=== PATIENT | female | born 1930 | race Caucasian/White ===

== ENCOUNTER 2017-11-01 12:22 | Observation (INO) ==
[2017-11-01] MEDS ORDERED: 0.9 % Sodium Chloride 500 ML IVC ONE (12:43)
[2017-11-01 13:15] LABS: Red Cell Distribution Width 16.8 % (11.5-14.5)
[2017-11-01 13:16] LABS: Hematocrit 37.6 % (35.3-44.9); Mean Corpuscular HGB Conc 31.9 g/dL (31.6-35.5); Mean Corpuscular Hemoglobin 25.2 pg (28.0-33.3); Mean Platelet Volume 12.3 fL (9.4-12.4); Red Blood Count 4.76 M/mcL (3.82-4.97)
[2017-11-01 13:19] LABS: Platelet Count 36 K/mcL (140-400)
[2017-11-01 13:19] LABS: Bilirubin,Urine Negative (Negative); Blood,Urine Small (Negative); Clarity,Urine Cloudy (Clear); Color,Urine Yellow (Yellow); Glucose,Urine (UA) Normal (Normal); Ketones,Urine Negative (Negative); Leukocyte Esterase,Urine Negative (Negative); Nitrite,Urine Negative (Negative); Protein,Urine 30 mg/dL (Neg-Trace); Specific Gravity,Urine 1.015 (1.010-1.025); Urobilinogen,Urine Normal (Normal)
[2017-11-01 13:20] LABS: INR 1.4; Prothrombin Time 15.1 Seconds (9.4-12.1)
[2017-11-01 13:20] LABS: RBC,Urine 15-30 per hpf (0-3); Squamous Epithelial Cell,Urine Many per lpf (None-Few); WBC,Urine 15-30 per hpf (0-3)
[2017-11-01 13:22] LABS: Activated Partial Thrombo Time 33.8 Seconds (26.0-36.0)
[2017-11-01 13:28] LABS: Yeast,Urine Few per hpf (None Seen)
[2017-11-01 13:29] LABS: Bacteria,Urine Few per hpf (None-Few)
[2017-11-01 13:38] LABS: Calcium 9.7 mg/dL (8.6-10.3); Potassium 2.9 mEq/L (3.5-5.1)
[2017-11-01 13:47] LABS: Lymphocytes # 18.3 K/mcL (0.6-4.6); Monocytes # 10.1 K/mcL (0.0-1.3); Neutrophils # 17.4 K/mcL (1.6-8.9)
[2017-11-01 13:48] LABS: Platelet Estimate Marked Decrease (Normal); Reactive Lymphocytes Present (Not Present)
[2017-11-01] MEDS ORDERED: 0.9 % Sodium Chloride 1,000 ML IVC ONE (13:49)
--- NOTE | 2017-11-01 15:39 | Emergency Department Note ---
Disposition Clinical Impression: Thrombocytopenia, Weakness, Tachycardia Leukocytosis Qualifiers: Leukocytosis type: unspecified Qualified Code(s): D72.829 - Elevated white blood cell count, unspecified Disposition: Admitted As Inpatient Condition: Good Time of Disposition: 15:00 Weakness HPI - General Chief complaint: ED General Medical Stated complaint: "not feeling well" Time Seen by Provider: 11/01/17 12:42 Source: patient, EMS Mode of arrival: ambulatory Limitations: no limitations Nursing Notes Reviewed: Yes Vital Signs Reviewed: Yes - History of Present Illness HPI Narrative: 87-year-old female presents emergency Department with generalized weakness and fatigue. Patient states that symptoms have been increasing over the past few days. Patient does have a history of previous urinary tract infections which have caused weakness. Patient has a history of elevated white blood cell count and is scheduled for further evaluation this month but has not yet had laboratory testing performed. He denies chest pain, shortness of breath, abdominal pain, rash. Pain Scale: 0 - Related Data Home Medications Medication Instructions Recorded Confirmed Albuterol Neb [Proventil Neb] 2.5 mg IH Q4HR PRN 09/05/15 09/05/15 Albuterol Sulfate [Proair 2 puff IH Q4H PRN 09/05/15 09/05/15 Respiclick] Amlodipine [Norvasc] 5 mg PO DAILY 09/05/15 09/05/15 Atorvastatin [Lipitor] 40 mg PO DAILY 09/05/15 09/05/15 Budesonide/Formoterol 160/4.5 2 puff IH BID PRN 09/05/15 09/05/15 [Symbicort] Ferrous Sulfate 325 mg PO DAILY 09/05/15 09/05/15 Gabapentin [Neurontin] 100 mg PO BID 09/05/15 09/05/15 HYDROcodone/Acet 7.5/325 mg [[place] 1 tab PO Q6H PRN 09/05/15 09/05/15 7.5-325 mg] Hydrochlorothiazide 25 mg PO DAILY 09/05/15 09/05/15 Meloxicam [Mobic] 15 mg PO DAILY 09/05/15 09/05/15 Omeprazole [PriLOSEC] 40 mg PO QAM 09/05/15 09/05/15 Potassium Chloride 40 meq PO DAILY 09/05/15 09/05/15 Previous Rx's Medication Instructions Recorded Cyclobenzaprine [Flexeril] 10 mg PO BID PRN #20 tablet 09/06/15 traMADol [Ultram] 50 mg PO QID PRN #16 tablet 02/07/16 Cephalexin [Keflex] 500 mg PO QID #28 capsule 10/10/17 predniSONE [PredniSONE] 20 mg PO DAILY #20 tablet 10/10/17 Allergies Allergy/AdvReac Type Severity Reaction Status Date / Time Penicillins Allergy Hives Verified 10/08/17 15:23 All systems ED: reviewed and negative except as stated. Review of Systems: As Per HPI Constitutional: Reports: weakness. Denies: fever, chills Cardiovascular: Denies: chest pain, palpitations Respiratory: Denies: cough, dyspnea, wheezes, hemoptysis Gastrointestinal: Denies: abdominal pain, nausea, vomiting Past Medical History - Past Medical History Attestation: Yes The following information was validated with the patient. Source: patient Medical history: Reports: cancer, hyperlipidemia, hypertension, other Surgical history: Reports: orthopedic, other Psychiatric history: Reports: no psych history - Social History Smoking Status: Never smoker Smokeless Tobacco Status: No Alcohol use: Reports: none Drug use: Reports: none Physical Exam General: Alert and in no acute distress Skin: Warm, dry, intact Head: Normocephalic and atraumatic Neck: Supple, trachea midline and no tenderness Cardiovascular: Tachycardia, irregular rhythm on monitor, normal perfusion Respiratory: CTAB, no wheezing, cough, or respiratory distress Musculoskeletal: Normal strength, no tenderness, swelling or deformity GI: Soft, nontender, nondistended. Bowel sounds present Neuro: No focal deficits noted on exam Psychiatric: cooperative and appropriate mood and affect. - General Limitations: no limitations General appearance: alert, in no apparent distress Course Vital Signs Temperature 98.2 F 11/01/17 12:25 Pulse Rate 114 11/01/17 12:25 Respiratory Rate 18 11/01/17 12:25 Blood Pressure 105/50 11/01/17 12:25 O2 Sat by Pulse Oximetry 95 11/01/17 12:25 Temperature 98.2 F 11/01/17 12:25 Pulse Rate 120 11/01/17 15:21 Respiratory Rate 18 11/01/17 15:21 Blood Pressure 123/68 11/01/17 15:21 O2 Sat by Pulse Oximetry 99 11/01/17 15:21 Oxygen Delivery Oxygen Delivery Room Air Weakness - MDM Narrative Medical decision making narrative: Patient has significantly elevated blood blood cell count and is now thrombocytopenic. CTA of the chest ordered to eval for PE secondary to tachycardia. CT of the chest did not show evidence of acute PE or infiltrate. Patient will be admitted to hospital for further care and evaluation of her abnormal laboratory values. Patient has EKG which shows sinus tachycardia with multiple PACs. Unclear as to the etiology of her tachycardia. Patient given fluids with improvement of her heart rate. Urinalysis does not show urinary tract infection however we will send this for culture. Patient will be admitted for further care and evaluation. - Medical Records Medical records reviewed: Yes I reviewed the patient's medical records. - Lab Data Lab results reviewed: Yes I reviewed the patient's lab results. Result diagrams: 11/01/17 13:00 11/01/17 13:00 Lab Results 11/01/17 11/01/17 11/01/17 Range/Units 13:00 13:00 13:00 WBC 45.8 H* (4.3-11.1) K/mcL RBC 4.76 (3.82-4.97) M/mcL Hgb 12.0 (11.5-15.4) g/dL Hct 37.6 (35.3-44.9) % MCV 79.0 L (83.0-100.0) fL MCH 25.2 L (28.0-33.3) pg MCHC 31.9 (31.6-35.5) g/dL RDW 16.8 H (11.5-14.5) % Plt Count 36 L (140-400) K/mcL MPV 12.3 (9.4-12.4) fL Seg Neutrophils % 38.0 % Lymphocytes % 40.0 % Monocytes % 22.0 % Neutrophils # 17.4 H (1.6-8.9) K/mcL Lymphocytes # 18.3 H (0.6-4.6) K/mcL Monocytes # 10.1 H (0.0-1.3) K/mcL Reactive Lymphocytes Present A (Not Present) Platelet Estimate Marked Decrease L (Normal) PT 15.1 H (9.4-12.1) Seconds INR 1.4 APTT 33.8 (26.0-36.0) Seconds Sodium 136 (136-145) mEq/L Potassium 2.9 L (3.5-5.1) mEq/L Chloride 100 (98-107) mEq/L Carbon Dioxide 26 (23-29) mEq/L BUN 23 (8-23) mg/dL Creatinine 1.51 H (0.60-1.20) mg/dL Est GFR ( Amer) 39 L (> 60) Est GFR (Non-Af Amer) 33 L (> 60) BUN/Creatinine Ratio 15 (6-26) Glucose 245 H (70-105) mg/dL Calculated Osmolality 294 (280-300) Calcium 9.7 (8.6-10.3) mg/dL Troponin I (< 0.04) ng/mL Urine Color (Yellow) Urine Clarity (Clear) Urine pH (5.0-8.0) pH Units Ur Specific [place] (1.010-1.025) Urine Protein (Neg-Trace) mg/dL Urine Glucose (UA) (Normal) mg/dL Urine Ketones (Negative) mg/dL Urine Blood (Negative) Urine Nitrite (Negative) Urine Bilirubin (Negative) Urine Urobilinogen (Normal) mg/dL Ur Leukocyte Esterase (Negative) Urine Microscopic RBC (0-3) per hpf Urine Microscopic WBC (0-3) per hpf Ur Squamous Epith Cells (None-Few) per lpf Urine Bacteria (None-Few) per hpf Urine Yeast (None Seen) per hpf Ur Culture Indicated? (NO) 11/01/17 11/01/17 Range/Units 13:00 13:11 WBC (4.3-11.1) K/mcL RBC (3.82-4.97) M/mcL Hgb (11.5-15.4) g/dL Hct (35.3-44.9) % MCV (83.0-100.0) fL MCH (28.0-33.3) pg MCHC (31.6-35.5) g/dL RDW (11.5-14.5) % Plt Count (140-400) K/mcL MPV (9.4-12.4) fL Seg Neutrophils % % Lymphocytes % % Monocytes % % Neutrophils # (1.6-8.9) K/mcL Lymphocytes # (0.6-4.6) K/mcL Monocytes # (0.0-1.3) K/mcL Reactive Lymphocytes (Not Present) Platelet Estimate (Normal) PT (9.4-12.1) Seconds INR APTT (26.0-36.0) Seconds Sodium (136-145) mEq/L Potassium (3.5-5.1) mEq/L Chloride (98-107) mEq/L Carbon Dioxide (23-29) mEq/L BUN (8-23) mg/dL Creatinine (0.60-1.20) mg/dL Est GFR ( Amer) (> 60) Est GFR (Non-Af Amer) (> 60) BUN/Creatinine Ratio (6-26) Glucose (70-105) mg/dL Calculated Osmolality (280-300) Calcium (8.6-10.3) mg/dL Troponin I 0.03 (< 0.04) ng/mL Urine Color Yellow (Yellow) Urine Clarity Cloudy A (Clear) Urine pH 6.0 (5.0-8.0) pH Units Ur Specific [place] 1.015 (1.010-1.025) Urine Protein 30 H (Neg-Trace) mg/dL Urine Glucose (UA) Normal (Normal) mg/dL Urine Ketones Negative (Negative) mg/dL Urine Blood Small H (Negative) Urine Nitrite Negative (Negative) Urine Bilirubin Negative (Negative) Urine Urobilinogen Normal (Normal) mg/dL Ur Leukocyte Esterase Negative (Negative) Urine Microscopic RBC 15-30 H (0-3) per hpf Urine Microscopic WBC 15-30 H (0-3) per hpf Ur Squamous Epith Cells Many H (None-Few) per lpf Urine Bacteria Few (None-Few) per hpf Urine Yeast Few H (None Seen) per hpf Ur Culture Indicated? NO (NO) - Radiology Data Radiology results reviewed: Yes I reviewed the patient's radiology results. - EKG Data EKG attestation: Yes I reviewed and interpreted this EKG. EKG results narrative: ECG - interpreted by ED physician. Rate 116, sinus tachycardia, no STEMI, multiple PACs
[2017-11-01] MEDS ORDERED: Ondansetron 4 MG/2 ML VIAL IVP PRN (16:03)
[2017-11-01] MEDS ORDERED: Naloxone 0.4 MG/ML INJ IVP PRN (16:03)
[2017-11-01] MEDS ORDERED: *HR* OxyCODONE Immed Rel 5 MG TABLET PO PRN (16:03)
[2017-11-01] MEDS ORDERED: Acetaminophen 325 MG TABLET PO PRN (16:11)
[2017-11-01] MEDS ORDERED: Ipratropium/Albuterol Neb 3 ML IH PRN (16:11)
[2017-11-01] MEDS ORDERED: D5% in Water 1,000 ML IVC PRN (16:12)
[2017-11-01] MEDS ORDERED: *HR* Dextrose 50 % in Water (Syg) 50 ML SYRINGE IVP PRN (16:12)
[2017-11-01] MEDS ORDERED: Dextrose Gel 15 GM/37.5 ML TUBE PO PRN ×2 (16:12)
--- NOTE | 2017-11-01 16:16 | Internal Med History&Physical ---
Date of Encounter: 11/01/17 Time of Encounter: 16:13 Assessment and Plan (1) Debility Current visit: Yes Status: Acute Severe weakness, unclear etiology, possibly secondary to viral infection, dehydration, acute gout attack, possible MDS syndrome Physical therapy and occupational therapy, fall precautions Omeprazole for GI prophylaxis and sequential compression devices for DVT prophylaxis. The patient will be admitted for observation. Full code. Time spent on this admission 40 minutes. High risk of falling (2) Chronic kidney disease, stage III (moderate) Current visit: Yes Status: Acute (3) Gout attack Current visit: Yes Status: Acute Swelling of both feet and bunions with erythema Start prednisone Qualifiers: Gout site: foot Gout etiology: unspecified cause Laterality: unspecified laterality Qualified Code(s): M10.9 - Gout, unspecified (4) HTN (hypertension) Current visit: No Status: Chronic Hold amlodipine Qualifiers: Hypertension type: essential hypertension Qualified Code(s): I10 - Essential (primary) hypertension (5) Hyperlipemia Current visit: No Status: Acute Qualifiers: Hyperlipidemia type: pure hypercholesterolemia Qualified Code(s): E78.00 - Pure hypercholesterolemia, unspecified; E78.0 - Pure hypercholesterolemia (6) Thrombocytopenia Current visit: Yes Status: Acute (7) Leukocytosis Current visit: Yes Status: Acute Consider possible myelodysplastic disorder versus association with acute gout attack May order oncology consult as the patient has been losing weight Test for respiratory viral panel and order LFTs in the morning Qualifiers: Leukocytosis type: unspecified Qualified Code(s): D72.829 - Elevated white blood cell count, unspecified (8) Weakness Current visit: Yes Status: Acute (9) Tachycardia Current visit: Yes Status: Acute Possibly secondary to dehydration IV fluids Internal Medicine - H&P: HPI Chief complaint: Severe weakness Admitted From: Emergency Dept History of present illness: Ms. Ware is a 87 year old female with a past medical history of hypertension and hyperlipidemia, chronic thrombocytopenia and leukocytosis, gout who came to the emergency room complaining of 2 days of worsening weakness, denies any sick contacts, patient is a very poor historian and is confused, according to her daughter she has not been able to walk due to severe weakness. Her heart rate was 127, white blood cell count is 45.8 and has a prior value of 31.3 with reactive lymphocytosis, platelets have been dropping down to 36 with a prior value of 91, potassium is 2.9 Leukos to 245, white blood cells are elevated and urine but denies any urinary symptoms, CT angios the chest shows no pulmonary emboli and shows an ascending thoracic aortic aneurysm that is unchanged from the prior study years ago. Patient has been losing weight, received IV fluids. And denies any other symptoms other than weakness Past Med Surg Social Fam HX - Past Medical History Medical history: cancer (Breast cancer 32 years ago status post right mastectomy ), hyperlipidemia, hypertension, other (Gout, chronic kidney disease stage III, lumbar radiculopathy, neuropathy) Psychiatric history: no psych history - Past Surgical History Surgical History: orthopedic, other (Right hip and left knee orif, right mastectomy) - Social History Smoking Status: Never smoker Smokeless Tobacco Status: No Alcohol use: none Drug use: none - Family History Father Adopted: No Living Status: Hx Family Neurologic Disorders: Yes (aneryism) - Additional Family History Additional family history: uncles with many types of cancers Internal Medicine - H&P: Meds Albuterol Neb [Proventil Neb] 2.5 mg IH Q4HR PRN 09/05/15 [History] Albuterol Sulfate [Proair Respiclick] 2 puff IH Q4H PRN 09/05/15 [History] Amlodipine [Norvasc] 5 mg PO BID 09/05/15 [History] Atorvastatin [Lipitor] 40 mg PO HS 09/05/15 [History] Budesonide/Formoterol 160/4.5 [Symbicort] 2 puff IH BID 09/05/15 [History] Ferrous Sulfate 325 mg PO DAILY 09/05/15 [History] Gabapentin [Neurontin] 100 mg PO BID 09/05/15 [History] HYDROcodone/Acet 7.5/325 mg [[place] 7.5-325 mg] 1 tab PO Q6H PRN 09/05/15 [ History] Potassium Chloride 40 meq PO DAILY 09/05/15 [History] 3 Allergy/AdvReac Type Severity Reaction Status Date / Time Penicillins Allergy Hives Verified 10/08/17 15:23 All Systems PM: A 10-system review of systems was performed and is negative for pertinent findings except as documented above in the HPI. Review of systems: No chest pain, no abdominal pain, no diarrhea. Other systems out of the 10 reviewed were negative - Constitutional Vitals: Temp Pulse Resp BP Pulse Ox 98.2 F 120 18 123/68 99 11/01/17 12:25 11/01/17 15:21 11/01/17 15:21 11/01/17 15:21 11/01/17 15:21 General appearance: Present: A&O X 3 Exam: Very hard of hearing - Head Head exam: Present: atraumatic, normocephalic - Eye Eye exam: Present: PERRL, conjuntiva pink, sclera anicteric Pupils: Present: PERRL - Neck Neck exam general surgery: Present: supple, trachea midline. Absent: lymphadenopathy - Respiratory Respiratory exam: Present: CTAB. Absent: accessory muscle use, rales, rhonchi, wheezes - Cardiovascular Cardiovascular exam: Present: RRR, +S1, +S2, tachycardia. Absent: diastolic murmur, gallop, rubs, systolic murmur - GI/Abdominal GI/Abdominal exam: Present: normal bowel sounds, soft, no peritoneal signs. Absent: distended, tenderness - Extremities Exam Extremities exam: Present: warm, radial pulses palpable and symmetrical. Absent : calf tenderness, cyanotic, pedal edema - Neurological Exam Neurological exam: Present: CN II-XII intact, oriented X3, no focal deficits. Absent: pronater drift, facial droop, speech deficit - Skin Skin exam: Present: dry, intact Internal Med - H&P Results - Labs CBC & Chem 7: 11/01/17 13:00 11/01/17 13:00
[2017-11-01] MEDS: predniSONE 20 MG TABLET PO SCH (16:58)
[2017-11-01] MEDS: 0.9 % Sodium Chloride 1,000 ML IVC SCH (16:58)
[2017-11-01] MEDS: Insulin LISPRO 300 UNITS/3 ML VIAL SQ SCH ×2 (17:10→20:48)
[2017-11-01 18:38] LABS: Adenovirus Not Detected (Not Detect); Bordetella Pertussis Not Detected (Not Detect); Chlamydophila pneumoniae Not Detected (Not Detect); Coronavirus 229E Not Detected (Not Detect); Coronavirus HKU1 Not Detected (Not Detect); Coronavirus NL63 ***DETECTED*** (Not Detect); Coronavirus OC43 Not Detected (Not Detect); Human Metapneumovirus Not Detected (Not Detect); Human Rhinovirus/Enterovirus Not Detected (Not Detect); Influenza A Subtype 2009 H1 Not Detected (Not Detect); Influenza A Untypeable Not Detected (Not Detect); Influenza B Not Detected (Not Detect); Mycoplasma pneumoniae Not Detected (Not Detect); Parainfluenza Virus 1 Not Detected (Not Detect); Parainfluenza Virus 2 Not Detected (Not Detect); Parainfluenza Virus 3 Not Detected (Not Detect); Parainfluenza Virus 4 Not Detected (Not Detect); Respiratory Syncytial Virus Not Detected (Not Detect)
[2017-11-01] MEDS: Gabapentin 100 MG CAPSULE PO SCH (20:37)
[2017-11-02] MEDS: 0.9 % Sodium Chloride 1,000 ML IVC SCH (06:02)
[2017-11-02 06:14] LABS: Basophils % 0.2 %; Hematocrit 29.3 % (35.3-44.9); Mean Corpuscular HGB Conc 31.4 g/dL (31.6-35.5)
[2017-11-02 06:16] LABS: Basophils # 0.1 K/mcL (0.0-0.2); Hemoglobin 9.2 g/dL (11.5-15.4); Immature Granulocytes % 4.7 % (0-4); Lymphocytes # 0.9 K/mcL (0.6-4.6); Lymphocytes % 2.9 %; Mean Corpuscular Hemoglobin 24.9 pg (28.0-33.3); Mean Corpuscular Volume 79.2 fL (83.0-100.0); Monocytes # 9.6 K/mcL (0.0-1.3); Monocytes % 29.7 %; Neutrophils # 20.3 K/mcL (1.6-8.9); Red Cell Distribution Width 16.8 % (11.5-14.5); Segmented Neutrophils % 62.5 %
[2017-11-02 06:27] LABS: Platelet Count 34 K/mcL (140-400)
[2017-11-02 06:30] LABS: Hemoglobin A1C 5.8 %
[2017-11-02 06:55] LABS: Hypersegmented Neutrophils Present (Not Present); Platelet Estimate Decreased (Normal)
[2017-11-02 07:58] LABS: Bilirubin,Total 0.6 mg/dL (0.3-1.0); Calcium 8.7 mg/dL (8.6-10.3); Globulin 2.9 g/dL (2.4-3.5); Total Protein 5.9 g/dL (6.4-8.9)
[2017-11-02] MEDS: Gabapentin 100 MG CAPSULE PO SCH ×2 (08:19→23:33)
[2017-11-02] MEDS: Insulin LISPRO 300 UNITS/3 ML VIAL SQ SCH ×4 (08:20→23:32)
[2017-11-02] MEDS: predniSONE 20 MG TABLET PO SCH (08:20)
--- NOTE | 2017-11-02 11:12 | Oncology Inp Consult Note ---
<Sandy Eric - Last Filed: 11/02/17 16:56> Date of Encounter: 11/02/17 Time of Encounter: 11:11 Assessment and Plan (1) Leukocytosis Status: Acute Assessment and plan: 1. Leukocytosis with predominant monocytosis/neutrophila, thrombocytopenia, hypochromic microcytic anemia. According to family the above explained lab values have been progressive in the outpatient setting with no acute infection/gout flare and PCP had discussed hem/ onc consult in September for potential bone marrow biopsy however, family were waiting to discuss further after the holidays. Recent decline in functional status which appears to be improving while inpatient, patient has PT/OT consulted and IVF for rehydration. She has had decreased appetite worsening over the past year with 20 pound weight loss, patient would like to hold off on nutrition consult at this time. Ordered blood smear with pathology review. Anemia work up ordered for AM including Ferritin, Iron profile, folate, serum free light chains, SPEP and B12. LDH normal. Dr. Nelson discussed laboratory findings and option for bone marrow aspiration biopsy for further evaluation and definitive diagnosis with patient and patients daughter Cherelle via telephone. Patient and patients daughter agreeable to bone marrow. Laboratory values suggestive of CML/CMML, pending bone marrow biopsy for definitive diagnosis with pathology review, FISH and cytogenics. New onset hyperglycemia, receiving SSI. Gout flare left great toe, receiving prednisone. Qualifiers: Leukocytosis type: unspecified Qualified Code(s): D72.829 - Elevated white blood cell count, unspecified - Data of Consult Patient: new to practice Consult date: 11/02/17 Requesting Physician: Pierre Schuler Primary Care Provider: Jose Manriquez Jr, MD - Consult Narrative Reason for consult: Leukocytosis History of present illness: Ms. Ware is a 87 year old female with past medical history significant for CKD , gout, HTN, right breast cancer, and hyperlipidemia. Patient admitted for progressive weakness worsening over the past few days prior to admission to the point where she could not ambulate and acute gout flare. Over the past 6 months her daughter reports a decline in mental status and worsening confusion which she has been following up with PCP for. At previous PCP appointment, PCP had voiced concern over patients blood counts and recommended hem/onc consult, family had wished to wait until after holiday. Patient lives alone with her 90 year old and lives quite independently. Her 2 daughters remain on close contact and check in often. Patient has a history of breast cancer treated with right mastectomy about 32 years ago, she did not receive chemo/radiation. Last mammogram March negative for malignancy BIRADS category 1. Patients sister of colon cancer in her 60's. Reports anorexia worsening over the past year with a resultant 20 pound weight loss. She drinks ensure daily and does not wish to speak with a recycling or rubbish collector at this time. Past Med Surg Social Fam HX - Past Medical History Medical history: cancer, hyperlipidemia, hypertension, other Psychiatric history: no psych history - Past Surgical History Surgical History: orthopedic, other - Social History Smoking Status: Never smoker Smokeless Tobacco Status: No Alcohol use: none Drug use: none - Family History Father Adopted: No Living Status: Hx Family Neurologic Disorders: Yes (aneryism) Medications and Allergies Albuterol Neb [Proventil Neb] 2.5 mg IH Q4HR PRN 09/05/15 [History] Albuterol Sulfate [Proair Respiclick] 2 puff IH Q4H PRN 09/05/15 [History] Amlodipine [Norvasc] 5 mg PO BID 09/05/15 [History] Atorvastatin [Lipitor] 40 mg PO HS 09/05/15 [History] Budesonide/Formoterol 160/4.5 [Symbicort] 2 puff IH BID 09/05/15 [History] Ferrous Sulfate 325 mg PO DAILY 09/05/15 [History] Gabapentin [Neurontin] 100 mg PO BID 09/05/15 [History] HYDROcodone/Acet 7.5/325 mg [[place] 7.5-325 mg] 1 tab PO Q6H PRN 09/05/15 [ History] Potassium Chloride 40 meq PO DAILY 09/05/15 [History] 3 Allergy/AdvReac Type Severity Reaction Status Date / Time Penicillins Allergy Hives Verified 10/08/17 15:23 Constitutional: Present: anorexia, fatigue, weakness, weight loss. Absent: frequent falls, headache(s) Eyes: Absent: change in vision Nose, mouth and throat: Absent: sinus pressure, sore throat Cardiovascular: Absent: chest pain, irregular heart rhythm, palpitations Respiratory: Absent: cough, dyspnea Gastrointestinal: Absent: abdominal pain, change in bowel habits, nausea, vomiting Genitourinary: Absent: dysuria, hematuria Musculoskeletal: Present: muscle weakness. Absent: numbness, tingling Integumentary: Absent: wounds Neurological: Present: confusion, vertigo. Absent: focal weakness, syncope Additional comments: vertigo with sitting to standing Hematologic/Lymphatic: Absent: lymphadenopathy Oncology - Exam - Constitutional Vitals: Temp Pulse Resp BP Pulse Ox 97.7 F 84 16 110/60 98 11/02/17 08:01 11/02/17 08:01 11/02/17 08:01 11/02/17 08:01 11/02/17 08:28 General appearance: cooperative, no acute distress, thin, no febrile - Head Head exam: Present: atraumatic - ENT ENT exam: Present: mucous membranes moist - Neck Neck exam: Present: full ROM - Respiratory Respiratory exam: Present: decreased breath sounds, CTAB - Cardiovascular Cardiovascular exam: Present: RRR, +S1, +S2, tachycardia - GI/Abdominal GI/Abdominal exam: Present: normal bowel sounds, soft. Absent: guarding, tenderness - Extremities Exam Extremities exam: Absent: calf tenderness, pedal edema - Neurological Exam Neurological exam: Present: alert, strengths equal and symetr throughout. Absent: no focal deficits Additional comments: oriented to person, reoriented to place/time/situation - Psychiatric Psychiatric exam: Present: normal affect, normal mood - Skin Skin exam: Present: pallor, warm Oncology - Results Labs: Short CBC 11/02/17 Range/Units 05:37 WBC 32.4 H* (4.3-11.1) K/mcL Hgb 9.2 L D (11.5-15.4) g/dL Hct 29.3 L (35.3-44.9) % Plt Count 34 L (140-400) K/mcL Neutrophils # 20.3 H (1.6-8.9) K/mcL BMP 11/02/17 05:37 Sodium 142 Potassium 4.0 D Chloride 111 H Carbon Dioxide 24 BUN 22 Creatinine 1.13 Glucose 167 H Calcium 8.7 Liver Function 11/02/17 Range/Units 05:37 Total Bilirubin 0.6 (0.3-1.0) mg/dL AST 11 L (13-39) Units/L ALT 10 (7-52) Units/L Alkaline Phosphatase 70 (34-104) Units/L Albumin 3.0 L (3.5-5.7) g/dL Consult Discharge Plan - Plan Referrals: Jose Manriquez Jr, MD [Primary Care Provider] - <Heath Nelson - Last Filed: 11/02/17 20:12> Date of Encounter: 11/02/17 - Data of Consult Requesting Physician: Pierre Schuler Primary Care Provider: Jose Manriquez Jr, MD - Consult Narrative History of present illness: Ms. Ware is a 87 year old female Oncology - Exam - Constitutional Vitals: Temp Pulse Resp BP Pulse Ox 97.7 F 76 18 118/62 96 11/02/17 19:40 11/02/17 19:40 11/02/17 19:40 11/02/17 19:40 11/02/17 19:40 Oncology - Results Labs: Short CBC 11/02/17 Range/Units 05:37 WBC 32.4 H* (4.3-11.1) K/mcL Hgb 9.2 L D (11.5-15.4) g/dL Hct 29.3 L (35.3-44.9) % Plt Count 34 L (140-400) K/mcL Neutrophils # 20.3 H (1.6-8.9) K/mcL BMP 11/02/17 05:37 Sodium 142 Potassium 4.0 D Chloride 111 H Carbon Dioxide 24 BUN 22 Creatinine 1.13 Glucose 167 H Calcium 8.7 Liver Function 11/02/17 Range/Units 05:37 Total Bilirubin 0.6 (0.3-1.0) mg/dL AST 11 L (13-39) Units/L ALT 10 (7-52) Units/L Alkaline Phosphatase 70 (34-104) Units/L Albumin 3.0 L (3.5-5.7) g/dL - Attending Attestation I examined this patient and my medical decision-making was reviewed with the Advanced Practice Nurse. I agree with the documented findings, disposition and treatment plan as described except to the extent set forth below. She has has leukocytosis with elevated neutrophil and monocyte count dating back 2 years. She has anemia and progressive thrombocytopenia. This is concerning for a myeloproliferative disorder such as CMML, CML, myelofibrosis as well as other leukemias. I have d/w with daughter, Cherelle, and have recommended BM biopsy. We discussed potential treatment options, although these will be limited by age and comorbidities. We would likely pursue transfusion support. Other potential options pending biopsy. Family desires to pursue biopsy and this will be ordered for tomorrow.
--- NOTE | 2017-11-02 13:48 | Electrocardiograph Report ---
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
--- NOTE | 2017-11-02 14:11 | Internal Med Progress Note ---
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 syndrome Physical therapy and occupational therapy, fall precautions Continue mild hydration (2) Coronavirus infection Current Visit: Yes Status: Acute Assessment and plan: Supportive care (3) Chronic kidney disease, stage III (moderate) Current Visit: Yes Status: Acute Assessment and plan: Stable (4) Gout attack Current Visit: Yes Status: Acute Assessment and plan: Continue prednisone Qualifiers: Gout site: foot Gout etiology: unspecified cause Laterality: unspecified laterality Qualified Code(s): M10.9 - Gout, unspecified (5) HTN (hypertension) Current Visit: No Status: Chronic Assessment and plan: Stable Hold amlodipine for now Qualifiers: Hypertension type: essential hypertension Qualified Code(s): I10 - Essential (primary) hypertension (6) Hyperlipemia Current Visit: No Status: Acute Qualifiers: Hyperlipidemia type: pure hypercholesterolemia Qualified Code(s): E78.00 - Pure hypercholesterolemia, unspecified; E78.0 - Pure hypercholesterolemia (7) Thrombocytopenia Current Visit: Yes Status: Acute (8) Leukocytosis Current Visit: Yes Status: Acute Assessment and plan: Evaluated by oncology for possible myelodysplastic disorder, exacerbated by acute gout attack Awaiting oncology recommendations Qualifiers: Leukocytosis type: unspecified Qualified Code(s): D72.829 - Elevated white blood cell count, unspecified (9) Weakness Current Visit: Yes Status: Acute (10) Tachycardia Current Visit: Yes Status: Acute Assessment and plan: Secondary to dehydration - Subjective Interval history: no CP , feeling still SOB, no fever, no headache, abdominal pain or dysuria. Still very weak - Constitutional Vitals: Temp Pulse Resp BP Pulse Ox 97.5 F L 82 16 121/61 97 11/02/17 11:46 11/02/17 11:46 11/02/17 11:46 11/02/17 11:46 11/02/17 11:46 General appearance: Present: A&O X 3 Exam: very hard of hearing, confused at times - Head Head exam: Present: atraumatic, normocephalic - Eye Eye exam: Present: PERRL, conjuntiva pink, sclera anicteric Pupils: Present: PERRL - Neck Neck exam general surgery: Present: supple, trachea midline. Absent: lymphadenopathy - Respiratory Respiratory exam: Present: CTAB. Absent: accessory muscle use, rales, rhonchi, wheezes - Cardiovascular Cardiovascular exam: Present: RRR, +S1, +S2. Absent: diastolic murmur, gallop, rubs, systolic murmur - GI/Abdominal GI/Abdominal exam: Present: normal bowel sounds, soft, no peritoneal signs. Absent: distended, tenderness - Extremities Exam Extremities exam: Present: warm, radial pulses palpable and symmetrical. Absent : calf tenderness, cyanotic, pedal edema Additional comments: Swelling of both feet and bunions with erythema, improving - Neurological Exam Neurological exam: Present: CN II-XII intact, oriented X3, no focal deficits. Absent: pronater drift, facial droop, speech deficit - Skin Skin exam: Present: dry, intact Internal Medicine: Result - Labs CBC & Chem 7: 11/02/17 05:37 11/02/17 05:37 Labs: Short CBC 11/02/17 Range/Units 05:37 WBC 32.4 H* (4.3-11.1) K/mcL Hgb 9.2 L D (11.5-15.4) g/dL Hct 29.3 L (35.3-44.9) % Plt Count 34 L (140-400) K/mcL Neutrophils # 20.3 H (1.6-8.9) K/mcL BMP 11/02/17 05:37 Sodium 142 Potassium 4.0 D Chloride 111 H Carbon Dioxide 24 BUN 22 Creatinine 1.13 Glucose 167 H Calcium 8.7 Liver Function 11/02/17 Range/Units 05:37 Total Bilirubin 0.6 (0.3-1.0) mg/dL AST 11 L (13-39) Units/L ALT 10 (7-52) Units/L Alkaline Phosphatase 70 (34-104) Units/L Albumin 3.0 L (3.5-5.7) g/dL - ABG Interpretation ABG results: PT/INR, D-dimer PT 15.1 Seconds (9.4-12.1) H 11/01/17 13:00 Consult Discharge Plan - Plan Referrals: Jose Manriquez Jr, MD [Primary Care Provider] -
[2017-11-02] MEDS: Budesonide/Formoterol 160/4.5 MDI IH SCH (20:30)
[2017-11-03 07:03] LABS: Folate 18.1 ng/mL (3.0-16.0)
[2017-11-03 08:17] LABS: % Iron Saturation 65 % (15-50); Iron 84 mcg/dL (50-170); Transferrin 93 mg/dL (203-362)
[2017-11-03] MEDS ORDERED: *HR* Midazolam HCl 2 MG/2 ML VIAL IVP ONE (08:54)
[2017-11-03] MEDS ORDERED: *HR* FentaNYL (PF) 100 MCG/2 ML VIAL IVP ONE (08:54)
[2017-11-03] MEDS: Gabapentin 100 MG CAPSULE PO SCH ×2 (09:28→20:23)
[2017-11-03] MEDS: predniSONE 20 MG TABLET PO SCH (09:28)
[2017-11-03] MEDS: Insulin LISPRO 300 UNITS/3 ML VIAL SQ SCH ×4 (09:28→22:10)
[2017-11-03] MEDS: Budesonide/Formoterol 160/4.5 MDI IH SCH ×2 (10:43→22:22)
--- NOTE | 2017-11-03 11:59 | Internal Med Progress Note ---
Date of Encounter: 11/03/17 Time of Encounter: 11:57 - Assessment and plan (1) Coronavirus infection Current Visit: Yes Status: Acute Assessment and plan: Respiratory viral panel positive for coronavirus NL63 strain. Continue droplet precautions and supportive care. Patient presented with generalized weakness, likely due to viral infection. (2) Leukocytosis Current Visit: Yes Status: Acute Assessment and plan: Patient is chronic leukocytosis and thrombocytosis with anemia, worsening. Evaluated by hematology, follow up peripheral smear. Vaginal smear, plan for bone marrow biopsy tomorrow. Qualifiers: Leukocytosis type: unspecified Qualified Code(s): D72.829 - Elevated white blood cell count, unspecified (3) Thrombocytopenia Current Visit: Yes Status: Chronic (4) HTN (hypertension) Current Visit: Yes Status: Chronic Qualifiers: Hypertension type: essential hypertension Qualified Code(s): I10 - Essential (primary) hypertension (5) Weakness Current Visit: Yes Status: Resolved Assessment and plan: Improved. Physical and occupational therapy evaluation noted, has no therapy needs. (6) Chronic kidney disease, stage III (moderate) Current Visit: Yes Status: Chronic Assessment and plan: serum creatinine stable; (7) Gout attack Current Visit: Yes Status: Acute Assessment and plan: has acute flare up of gouty arthritis; started on PO Prednisone; continue for now along with PRN Tylenol; avoid NSAIDs; may be discharged on Allopurinol for intermediate card tender; Qualifiers: Gout site: foot Gout etiology: unspecified cause Laterality: unspecified laterality Qualified Code(s): M10.9 - Gout, unspecified - Subjective Interval history: Feels well; has no chest pain, dyspnea, nausea, vomiting or diarrhea; improving malaise and able to ambulate to bathroom; continues to have pain in big toe joints B/L; - Constitutional Vitals: Temp Pulse Resp BP Pulse Ox 98 F 80 19 120/65 96 11/03/17 07:14 11/03/17 07:14 11/03/17 07:14 11/03/17 07:14 11/03/17 07:14 General appearance: Present: A&O X 3, answers questions appropriately - Respiratory Respiratory exam: Present: CTAB. Absent: accessory muscle use, rales, rhonchi, wheezes - Cardiovascular Cardiovascular exam: Present: RRR, +S1, +S2. Absent: diastolic murmur, gallop, rubs, systolic murmur - GI/Abdominal GI/Abdominal exam: Present: normal bowel sounds, soft, no peritoneal signs. Absent: distended, tenderness - Extremities Exam Extremities exam: Present: full ROM, warm, radial pulses palpable and symmetrical. Absent: calf tenderness, cyanotic, pedal edema Additional comments: B/L 1st MTP joints with erythema, swelling and tenderness Internal Medicine: Result - Labs CBC & Chem 7: 11/02/17 05:37 11/02/17 05:37 Labs: Short CBC 11/02/17 Range/Units 05:37 WBC 32.4 H* (4.3-11.1) K/mcL Hgb 9.2 L D (11.5-15.4) g/dL Hct 29.3 L (35.3-44.9) % Plt Count 34 L (140-400) K/mcL Neutrophils # 20.3 H (1.6-8.9) K/mcL - ABG Interpretation ABG results: PT/INR, D-dimer PT 15.1 Seconds (9.4-12.1) H 11/01/17 13:00 Consult Discharge Plan - Plan Referrals: Jose Manriquez Jr, MD [Primary Care Provider] - (please call an appt, if patient will not go ECF)
--- NOTE | 2017-11-03 17:48 | Oncology Inp Progress Note ---
<Sandy Eric L - Last Filed: 11/03/17 17:46> Date of Encounter: 11/03/17 Time of Encounter: 12:45 (1) Leukocytosis Current Visit: Yes Status: Acute Assessment and plan: 1. Leukocytosis with predominant monocytosis/neutrophila, thrombocytopenia, hypochromic microcytic anemia. Recent decline in functional status which appears to be improving while inpatient, patient has PT/OT consulted and IVF for rehydration. She has had decreased appetite worsening over the past year with 20 pound weight loss, patient would like to hold off on nutrition consult at this time. Ordered blood smear with pathology review, currently pending. Discussed laboratory work up results with patient/family. Anemia work up including iron profile, folate and B12 returned normal, ferritin elevated, LDH low. Awaiting serum free light chains and SPEP. Lab values as describe above concerning for a myeloproliferative disorder such as CMML, CML, myelofibrosis as well as other leukemias. Dr. Nelson has discussed lab values with patient and patients daughters and recommended BM biopsy. Patient/family understand that treatment options will be limited by age and comorbidities and dependent upon bone marrow results, may be limited to only transfusional support. Other potential treatment options pending biopsy. Family and patient desire to pursue biopsy and this is planned for tomorrow, plan again verified with patient/patients daughter again today. New onset hyperglycemia, receiving SSI. Gout flare left great toe, receiving prednisone. Please refer to Dr. Nelson's attestation below for further details. Qualifiers: Leukocytosis type: unspecified Qualified Code(s): D72.829 - Elevated white blood cell count, unspecified Oncology: Subj Interval history: Ms. Ware has no complaints currently. Her daughter is at bedside. She denies pain. Weakness improving, she was able to ambulate with assistance to the bathroom. She denies chest pain, SOB, vertigo or any s/s of bleeding. - Constitutional Vitals: Vital Signs Temp Pulse Resp BP Pulse Ox 11/03/17 10:43 18 96 11/03/17 07:14 98 F 80 19 120/65 96 11/03/17 05:12 97.4 F L 91 20 134/63 100 11/03/17 01:14 97.5 F L 72 20 107/63 98 11/02/17 20:33 14 98 01/15/18 19:40 97.7 F 76 18 118/62 96 Intake and Output 11/03/17 11/03/17 11/03/17 07:59 15:59 23:59 Intake Total 240 / 240 Balance 240 / 240 Intake: Oral 240 / 240 Other: Meal Breakfast Percent of Meal Consumed 90% # Voids 1 # Bowel Movements 1 Weight 47.627 kg Blood Glucose* 125 184 Patient Weight 11/03/17 23:59 Weight 47.627 kg General appearance: cooperative, no acute distress, thin, no febrile - Respiratory Respiratory exam: Present: decreased breath sounds, CTAB - Cardiovascular Cardiovascular exam: Present: RRR, +S1, +S2 - GI/Abdominal GI/Abdominal exam: Present: normal bowel sounds, soft. Absent: tenderness - Extremities Exam Extremities exam: Absent: calf tenderness, pedal edema - Expanded Lower Extremity Exam Lower leg exam: Absent: swelling - Neurological Exam Neurological exam: Present: alert, strengths equal and symetr throughout. Absent: no focal deficits Additional comments: oriented to person, re-oriented to situation/place and time - Psychiatric Psychiatric exam: Present: normal affect, normal mood - Skin Skin exam: Present: normal color, warm Oncology: Obj Data - Labs CBC & Chem 7: 11/02/17 05:37 11/02/17 05:37 Labs: Laboratory Results - last 24 hr 11/02/17 11/03/17 11/03/17 23:19 05:58 05:58 POC Glucose 240 H Iron 84 % Saturation 65 H Transferrin 93 L Ferritin > 1350 H Vitamin B12 414 Folate 18.1 H 11/03/17 15:44 POC Glucose 184 H Iron % Saturation Transferrin Ferritin Vitamin B12 Folate - ABG Interpretation ABG results: PT/INR, D-dimer PT 15.1 Seconds (9.4-12.1) H 11/01/17 13:00 Consult Discharge Plan - Plan Referrals: Jose Manriquez Jr, MD [Primary Care Provider] - (please call an appt, if patient will not go ECF) <Heath Nelson - Last Filed: 11/03/17 22:03> Date of Encounter: 11/03/17 - Constitutional Vitals: Vital Signs Temp Pulse Resp BP Pulse Ox 11/03/17 21:56 97.9 F 79 18 135/76 97 11/03/17 10:43 18 96 11/03/17 07:14 98 F 80 19 120/65 96 11/03/17 05:12 97.4 F L 91 20 134/63 100 11/03/17 01:14 97.5 F L 72 20 107/63 98 Intake and Output 11/03/17 11/03/17 11/04/17 08:59 16:59 00:59 Intake Total 240 / 240 800 / 800 Balance 240 / 240 800 / 800 Intake: Oral 240 / 240 800 / 800 Other: Meal Breakfast Percent of Meal Consumed 90% # Voids 1 # Bowel Movements 1 Weight 47.627 kg Blood Glucose* 125 184 204 Patient Weight 11/04/17 00:59 Weight 47.627 kg Oncology: Obj Data - Labs CBC & Chem 7: 11/02/17 05:37 11/02/17 05:37 Labs: Laboratory Results - last 24 hr 11/02/17 11/03/17 11/03/17 23:19 05:58 05:58 POC Glucose 240 H Iron 84 % Saturation 65 H Transferrin 93 L Ferritin > 1350 H Vitamin B12 414 Folate 18.1 H 11/03/17 11/03/17 11/03/17 07:19 12:13 15:44 POC Glucose 125 H 183 H 184 H Iron % Saturation Transferrin Ferritin Vitamin B12 Folate - ABG Interpretation ABG results: PT/INR, D-dimer PT 15.1 Seconds (9.4-12.1) H 11/01/17 13:00 - Attending Attestation I examined this patient and my medical decision-making was reviewed with the Advanced Practice Nurse. I agree with the documented findings, disposition and treatment plan as described except to the extent set forth below. Blood counts stable today. Exam unchanged. I d/w Cherelle last night and Dana today current situation. Will proceed with inpatient BM biopsy tomorrow. Further management pending biopsy. Likely will be transfusion support and no aggressive measures. May be d/c home once biopsy complete from our perspective.
[2017-11-03] MEDS: amLODIPine 5 MG TABLET PO SCH (20:24)
[2017-11-04 07:08] LABS: Mean Corpuscular Hemoglobin 24.9 pg (28.0-33.3)
[2017-11-04 07:10] LABS: Hematocrit 30.1 % (35.3-44.9); Hemoglobin 9.5 g/dL (11.5-15.4); Immature Platelets 18.6 % (1.1-6.1); Mean Corpuscular HGB Conc 31.6 g/dL (31.6-35.5); Red Blood Count 3.81 M/mcL (3.82-4.97); Red Cell Distribution Width 16.9 % (11.5-14.5)
[2017-11-04 07:24] LABS: Platelet Count 70 K/mcL (140-400)
[2017-11-04 07:35] LABS: Calcium 9.1 mg/dL (8.6-10.3); Potassium 3.3 mEq/L (3.5-5.1)
[2017-11-04] MEDS: Budesonide/Formoterol 160/4.5 MDI IH SCH (07:55)
[2017-11-04 08:05] LABS: Lymphocytes # 0.4 K/mcL (0.6-4.6); Monocytes # 2.4 K/mcL (0.0-1.3); Neutrophils # 17.4 K/mcL (1.6-8.9); Platelet Estimate Decreased (Normal)
[2017-11-04] MEDS: Insulin LISPRO 300 UNITS/3 ML VIAL SQ SCH (08:46)
[2017-11-04] MEDS: amLODIPine 5 MG TABLET PO SCH (08:50)
[2017-11-04] MEDS: predniSONE 20 MG TABLET PO SCH (08:50)
[2017-11-04] MEDS: Gabapentin 100 MG CAPSULE PO SCH (08:50)
--- NOTE | 2017-11-04 09:09 | Oncology Inp Progress Note ---
Date of Encounter: 11/04/17 Time of Encounter: 09:09 (1) Leukocytosis Status: Acute Assessment and plan: 1. Leukocytosis with predominant monocytosis/neutrophila, thrombocytopenia, hypochromic microcytic anemia. Concerning for a myeloproliferative disorder such as CMML, CML, myelofibrosis as well as other leukemias. Recent decline in functional status, anorexia with 20 pound weight loss over past year. Her weakness is improving and she is able to ambulate with minimal assist. Her difficulty with ambulation is more so attributed to her pain due to gout. Her cell counts continue to improve today. Blood smear with pathology review, currently pending. Anemia work up including iron profile, folate and B12 returned normal, ferritin elevated, LDH low. Awaiting serum free light chains and SPEP. She is planned for bone marrow aspiration biopsy today. From hematological standpoint following this she is ok for discharge pending medical clearance from hospitalist team. She has a follow up arranged with Dr. Nelson next week to discuss biopsy results. Patient/family understand that treatment options will be limited by age and comorbidities and dependent upon bone marrow results, may be limited to only transfusional support. Other potential treatment options pending biopsy. Qualifiers: Leukocytosis type: unspecified Qualified Code(s): D72.829 - Elevated white blood cell count, unspecified Oncology: Subj Interval history: Ms. Ware is sitting on the side of her bed this morning. She is feeling well and has no physical complaints. Her daughters have not yet arrived. Discussed plan from bone marrow biopsy today and potential discharge home following this is cleared by hospitalist team. Her weakness has improved, she is able to ambulate with minimal assist. - Constitutional Vitals: Vital Signs Temp Pulse Resp BP Pulse Ox 11/04/17 07:05 98.7 F 83 16 150/71 95 11/04/17 05:53 97.8 F 86 18 137/67 97 11/03/17 23:49 97.5 F L 80 18 134/68 97 11/03/17 22:22 16 96 11/03/17 21:56 97.9 F 79 18 135/76 97 11/03/17 10:43 18 96 Intake and Output 11/03/17 11/04/17 11/04/17 23:59 07:59 15:59 Intake Total 1800 / 1800 800 / 800 30 / 30 Output Total 0 / 0 Balance 1800 / 1800 800 / 800 30 / 30 Intake: IV Fluids 1000 / 1000 Oral 800 / 800 800 / 800 30 / 30 Output: Urine 0 / 0 Other: # Voids 1 Weight 47.899 kg Blood Glucose* 204 116 Patient Weight 11/04/17 23:59 Weight 47.899 kg General appearance: cooperative, no acute distress, thin, no febrile - Respiratory Respiratory exam: Present: decreased breath sounds, CTAB - Cardiovascular Cardiovascular exam: Present: RRR, +S1, +S2 - GI/Abdominal GI/Abdominal exam: Present: normal bowel sounds, soft. Absent: tenderness - Extremities Exam Extremities exam: Absent: calf tenderness, pedal edema - Expanded Lower Extremity Exam Lower leg exam: Absent: swelling - Neurological Exam Neurological exam: Present: alert, strengths equal and symetr throughout. Absent: no focal deficits, speech deficit Additional comments: Oriented to person/place, confusion seems to wax and wane - Psychiatric Psychiatric exam: Present: normal affect, normal mood - Skin Skin exam: Present: normal color, warm Oncology: Obj Data - Labs CBC & Chem 7: 11/04/17 06:41 11/04/17 06:41 - ABG Interpretation ABG results: PT/INR, D-dimer PT 15.1 Seconds (9.4-12.1) H 11/01/17 13:00 Consult Discharge Plan - Plan Instructions: Prednisone (By mouth) Referrals: Jose Manriquez Jr, MD [Primary Care Provider] - 11/09/17 10:45 am ( ) Prescriptions: predniSONE [PredniSONE] See Taper PO TAPER #13 tablet
[2017-11-04] MEDS ORDERED: *HR* Midazolam HCl 2 MG/2 ML VIAL IVP ONE (10:13)
[2017-11-04] MEDS ORDERED: *HR* FentaNYL (PF) 100 MCG/2 ML VIAL IVP ONE (10:13)
[2017-11-04] MEDS ORDERED: 0.9 % Sodium Chloride 500 ML ONE (10:50)
--- NOTE | 2017-11-04 11:15 | Discharge Summary ---
Date of Encounter: 11/04/17 Time of Encounter: 11:11 - Discharge Diagnosis (1) Thrombocytopenia Priority: Primary Status: Chronic (2) Leukocytosis Priority: Primary Status: Acute Qualifiers: Leukocytosis type: unspecified Qualified Code(s): D72.829 - Elevated white blood cell count, unspecified (3) Weakness Priority: Primary Status: Resolved (4) Debility Priority: Primary Status: Acute (5) Chronic kidney disease, stage III (moderate) Priority: Secondary Status: Chronic (6) Gout attack Priority: Primary Status: Acute Qualifiers: Gout site: foot Gout etiology: unspecified cause Laterality: unspecified laterality Qualified Code(s): M10.9 - Gout, unspecified (7) Coronavirus infection Priority: Primary Status: Acute (8) Low body mass index (BMI) Priority: Secondary Status: Acute - Discharge Medications Prescriptions: predniSONE [PredniSONE] See Taper PO TAPER #13 tablet Home Medications: Albuterol Neb [Proventil Neb] 2.5 mg IH Q4HR PRN 09/05/15 [History] Albuterol Sulfate [Proair Respiclick] 2 puff IH Q4H PRN 09/05/15 [History] Amlodipine [Norvasc] 5 mg PO BID 09/05/15 [History] Atorvastatin [Lipitor] 40 mg PO HS 09/05/15 [History] Budesonide/Formoterol 160/4.5 [Symbicort] 2 puff IH BID 09/05/15 [History] Ferrous Sulfate 325 mg PO DAILY 09/05/15 [History] Gabapentin [Neurontin] 100 mg PO BID 09/05/15 [History] HYDROcodone/Acet 7.5/325 mg [[place] 7.5-325 mg] 1 tab PO Q6H PRN 09/05/15 [ History] Potassium Chloride 40 meq PO DAILY 09/05/15 [History] predniSONE [PredniSONE] See Taper PO TAPER #13 tablet 11/04/17 [Rx] Allergies/Adverse Reactions: 3 Allergy/AdvReac Type Severity Reaction Status Date / Time Penicillins Allergy Hives Verified 10/08/17 15:23 Procedures/tests Complete & Pending: Procedures Performed prior 72 hours Category Date Time Status CT guided biopsy [CT] Routine Cat Scan 11/04/[address] biopsy bone marrow [CT] Routine Exams 11/04/17 Ordered Date of admission: 11/01/17 15:27 Primary care physician: Jose Manriquez Jr, MD Consults: 11/01/17 16:14 Consult to Occupational Therapy [CONS] Routine Comment: Evaluate, develop and implement POC Reason for Consult: Eval Consult to Oncology [CONS] Routine Consulting Provider: Oncology [facility] Reason for Consult: Leukocytosis, thrombocytopenia Call Completed: No Consult to Physical Therapy [CONS] Routine Comment: Evaluate, develop and implement POC Reason for Consult: Eval 11/01/17 16:57 Consult to Nutrition [CONS] Routine Comment: Consulting Provider: NUTRITION Reason for Dietary Consult: MST Score Consult to Pastoral Services [CONS] Routine Comment: Consult to Strategy Director [CONS] Routine Reason for SW Consult: discharge planning; lives home with 90 year old ; 11/02/17 17:11 Consult to Interventional Radiology [CONS] Routine Consulting Provider: Radiology Interventional Cols Reason for Consult: Bone marrow biopsy, please send for pathology, FISH and cytogenetics Call Completed: Yes - Patient Status Disposition: Home, Self-Care Condition: Fair Overall status at discharge: patient is progressing back to baseline - Discharge Instructions Instructions: Prednisone (By mouth) Follow Up With: Jose Manriquez Jr, MD [Primary Care Provider] - 11/09/17 10:45 am ( ) Forms: ED Satisfaction Letter, Work/School Release - Diet and Activity Activity: increase activity as tolerated Diet: low salt diet, regular diet Hospital course: Ms. Ware is a 87 year old female with a past medical history of hypertension and hyperlipidemia, chronic thrombocytopenia and leukocytosis, gout who came to the emergency room complaining of 2 days of worsening weakness. Her heart rate was 127, white blood cell count is 45.8 and has a prior value of 31.3 with reactive lymphocytosis, platelets have been dropping down to 36 with a prior value of 91. CT angios the chest shows no pulmonary emboli and showed an ascending thoracic aortic aneurysm that is unchanged from the prior study years ago. The patient tested positive for vera virus. Regarding her leukocytosis , anemia, and thrombocytopenia with initial consult with hematology/oncology and the patient underwent a bone marrow biopsy with results pending for which she will need follow-up with them. The patient was hydrated and treated symptomatically for an acute viral infection. She was also noted to have an acute gouty attack of her toe. She was put on prednisone. She is discharged on a prednisone taper and she could possibly benefit from allopurinol once she is done with the taper. I saw her that her primary care physician. She was stable for discharge on 11/04/2017. - Time Spent with Patient Total time spent providing and/or coordinating discharge services: Greater than 30 minutes - Constitutional Vitals: Temp Pulse Resp BP Pulse Ox 98.7 F 86 16 134/61 100 11/04/17 07:05 11/04/17 11:05 11/04/17 11:05 11/04/17 11:05 11/04/17 11:05 General appearance: Present: A&O X 3, answers questions appropriately Exam: GEN: NAD CVS: RRR. S1, S2, No m/r/g RESP: CTAB ABD: Soft, NT, ND, +BS EXT: No edema. 2+ DP. No rashes NEURO: Nonfocal - VTE Documentation of Mechanical Device: Intermittent pneumatic compression device
--- NOTE | 2017-11-04 11:22 | IR Procedure Note ---
Date of procedure: 11/04/17 Consent Obtained: Written consent Timeout: Correct patient and procedure verified, Correct site verified, Time out performed, Skin prep completed Local anesthetic: Lidocaine 1% Indications: Monocytosis/neutrophila, thrombocytopenia, hypochromic microcytic anemia Procedure Performed: BMBx Was there an graduate assistant present: No Site/Technique: Right posterior iliac bone Results/Findings: Good aspirate and core Estimated blood loss (cc): 10 Complications: None; Tolerated procedure well Post Procedure Treatment Plan: Monitoring in pts room Specimen: To lab
[2017-11-04 15:59] LABS: Kappa Qnt Free Light Chains 2.7 mg/dL (0.33-1.94); Lambda Qnt Free Light Chains 2.88 mg/dL (0.57-2.63)
[2017-11-04 16:18] VITALS: BP 119/57
[2017-11-05 15:42] LABS: Beta Globulin (PEP) 0.57 g/dL (0.48-1.10)
[2017-11-06 08:09] LABS: IFE Reflexed NOT DONE
[2017-12-01 14:23] LABS: Ferritin 938 ng/ml (10-120)
== END 2017-11-04 14:40 | disposition home or self-care (01) ==
LOC: EMEROO 12:22 → 2ANU 12:22 → SUATTDRO 15:27 → 2ANU 16:26
PROVIDERS: ADMIT Internal Medicine; ATTEND Internal Medicine

== ENCOUNTER 2018-03-11 17:39 | Observation (INO) ==
[2018-03-11 18:08] LABS: Basophils % 0.2 %
[2018-03-11 18:09] LABS: Basophils # 0.1 K/mcL (0.0-0.2); Hematocrit 38.3 % (35.3-44.9); Immature Granulocytes % 1.7 % (0-4); Lymphocytes # 1.8 K/mcL (0.6-4.6); Lymphocytes % 5.5 %; Mean Corpuscular HGB Conc 33.9 g/dL (31.6-35.5); Mean Corpuscular Hemoglobin 26.8 pg (28.0-33.3); Mean Platelet Volume 11.1 fL (9.4-12.4); Monocytes # 12.2 K/mcL (0.0-1.3); Neutrophils # 18.4 K/mcL (1.6-8.9); Red Blood Count 4.85 M/mcL (3.82-4.97); Red Cell Distribution Width 17.2 % (11.5-14.5); Segmented Neutrophils % 55.6 %
[2018-03-11 18:13] LABS: Platelet Count 83 K/mcL (140-400)
[2018-03-11 18:35] LABS: Alanine Aminotransferase 8 Units/L (7-52); Albumin 3.8 g/dL (3.5-5.7); Albumin/Globulin Ratio 1.3 (1.1-2.2); Alkaline Phosphatase 51 Units/L (34-104); Amylase 28 Units/L (29-103); Aspartate Amino Transferase 11 Units/L (13-39); BUN/Creatinine Ratio 16 (6-26); Blood Urea Nitrogen 21 mg/dL (8-23); Calcium 9.9 mg/dL (8.6-10.3); Carbon Dioxide 25 mEq/L (23-29); Chloride 103 mEq/L (98-107); Globulin 2.9 g/dL (2.4-3.5); Glucose 218 mg/dL (70-105); Lipase 36 Units/L (11-82); Osmolality,Calculated 296 (280-300); Potassium 3.6 mEq/L (3.5-5.1); Sodium 138 mEq/L (136-145); Total Protein 6.7 g/dL (6.4-8.9); Troponin I < 0.03 ng/mL (< 0.04); eGFR For African Americans 45 (> 60); eGFR For Non-African Americans 37 (> 60)
[2018-03-11 18:40] LABS: Platelet Estimate Decreased (Normal)
[2018-03-11 18:41] LABS: Reactive Lymphocytes Present (Not Present)
--- NOTE | 2018-03-11 18:54 | Emergency Department Note ---
Disposition Clinical Impression: Confusion, Weakness Leukocytosis Qualifiers: Leukocytosis type: unspecified Qualified Code(s): D72.829 - Elevated white blood cell count, unspecified Urinary tract infection Qualifiers: Urinary tract infection type: site unspecified Hematuria presence: without hematuria Qualified Code(s): N39.0 - Urinary tract infection, site not specified Disposition: Admitted As Inpatient Condition: Fair Referrals: Jose Manriquez Jr, MD [Primary Care Provider] - Time of Disposition: 20:22 General Adult HPI - General Chief complaint: ED General Medical Stated complaint: "just feels off" Time Seen by Provider: 03/11/18 18:15 Source: patient, EMS Mode of arrival: ambulatory Limitations: no limitations Nursing Notes Reviewed: Yes Vital Signs Reviewed: Yes - History of Present Illness HPI Narrative: Patient presents emergency room in the care of the family for evaluation of generalized malaise weakness and some intermittent confusion. Daughter is noticed it worse over the last several days. Patient has been having symptoms for almost 2 weeks. Denies any recent illnesses falls trauma or injury. Patient is currently denying shortness of breath headache vision changes chest pain fevers or chills. No new medications or issues. Patient has chronic medical issues are stable at this time. Onset (ago): day(s) Radiation: non-radiation Pain Scale: 0 Improves with: nothing Worsens with: nothing Associated symptoms: Reports: confusion, loss of appetite Treatments Prior to Arrival: none - Related Data Home Medications Medication Instructions Recorded Confirmed Albuterol Sulfate [Proair 2 puff IH Q4H PRN 09/05/15 01/08/18 Respiclick] Atorvastatin [Lipitor] 40 mg PO HS 09/05/15 01/08/18 HYDROcodone/Acet 7.5/325 mg [[place] 1 tab PO Q6H PRN 09/05/15 01/08/18 7.5-325 mg] Budesonide/Formoterol 160/4.5 2 puff IH BIDR 03/11/18 03/11/18 [Symbicort 160/4.5] Ferrous Sulfate [Iron] 325 mg PO DAILY 03/11/18 03/11/18 Gabapentin [Neurontin] 100 mg PO BID 03/11/18 03/11/18 Potassium Chloride 40 meq PO DAILY 03/11/18 03/11/18 amLODIPine [Norvasc] 5 mg PO BID 03/11/18 03/11/18 Allergies Allergy/AdvReac Type Severity Reaction Status Date / Time Penicillins Allergy Hives Verified 03/11/18 20:00 All systems ED: reviewed and negative except as stated. Review of Systems: As Per HPI Constitutional: Denies: fever, chills, weakness Cardiovascular: Denies: chest pain, palpitations, dyspnea on exertion, orthopnea Respiratory: Denies: cough, dyspnea, wheezes, hemoptysis Gastrointestinal: Denies: abdominal pain, nausea, vomiting, diarrhea Genitourinary: Denies: urgency, dysuria, frequency Musculoskeletal: Denies: back pain, neck pain Integumentary: Denies: rash Neurological: Denies: headache Past Medical History - Past Medical History Attestation: Yes The following information was validated with the patient. Source: patient, obtained from family Medical history: Reports: cancer, dementia, hyperlipidemia, hypertension, other Surgical history: Reports: orthopedic, other Psychiatric history: Reports: no psych history - Social History Smoking Status: Never smoker Smokeless Tobacco Status: No Alcohol use: Reports: none Drug use: Reports: none Physical Exam - General Limitations: no limitations General appearance: alert, in no apparent distress - Head Head exam: atraumatic, normocephalic, normal inspection - Eye Eye exam: Present: normal appearance, PERRL, EOMI - ENT ENT exam: normal exam, normal oropharynx, mucous membranes moist - Neck Neck exam: Present: normal inspection, full ROM, trachea midline. Absent: tenderness, meningismus, lymphadenopathy - Chest Chest inspection: Present: normal inspection, symmetric chest wall rise - Respiratory Respiratory exam: Present: normal lung sounds bilaterally. Absent: respiratory distress, accessory muscle use - Cardiovascular Cardiovascular exam: Present: regular rate, normal rhythm, normal heart sounds - Abdominal Exam Abdominal exam: Present: soft, Non-Tender, normal bowel sounds. Absent: tenderness, distention, guarding, rebound, rigidity, diminished bowel sounds, Baez's sign, Rovsing's sign, tenderness at McBurney's Point - Extremities Exam Extremities exam: Present: normal inspection, full ROM, normal capillary refill. Absent: tenderness, pedal edema - Back Exam Back exam: Present: normal inspection, full ROM. Absent: tenderness, CVA tenderness (R), CVA tenderness (L) - Neurological Exam Neurological exam: Present: alert, oriented X3, CN II-XII intact, normal gait - Skin Skin exam: Present: warm, dry, intact, normal color Course Course Narrative: Patient seen and examined the time of arrival. See history of present illness. 87-year-old female presents to the emergency room the care of the family for evaluation of progression of dementia along with generalized weakness and malaise. Patient has not wanted to eat. Family and patient denies any trauma or injury. Denies any recent illnesses. Denies any medication changes. Patient is currently denying chest pain shortness of breath headache vision changes nausea vomiting or diarrhea. Denies any fevers or chills. Vital signs are reviewed and are stable. Patient has chronic A. fib. She also has known them, but a slow progression at this time. Patient is very thin and frail. Head is atraumatic pupils are equal and reactive mucous membranes are slightly dry. Oropharynx is patent trachea is midline no stridor no trismus. Lungs are clear to auscultation. There is no crepitus or deformity. Heart is regular at this time. This is a chronic issue. Abdomen is soft there is no guarding or rigidity. Extremities appear to be stable no signs of fracture injury or deformity of this point. Pulses are intact. Patient is mentating answering questions appropriately and the emergency room. Evaluation will be completed patient is otherwise clinically stable. Detailed workup will be completed. CT of the head chest x-ray labs including CBC chemistry urinalysis will be addressed. Electrolytes are concerned this time secondary to what appears to be decreased by mouth intake. Patient is otherwise stable. We will discuss disposition with the full treatment course is established - Reevaluation(s) Reevaluation #1: Patient found to have a grossly infected urine. This could be what is exacerbating her elevated l white blood cell count. Patient was started on Rocephin here. She has no previous urinalysis is for review. Patient is otherwise clinically stable. Admission will be completed secondary to the confusion, weakness, urinary tract infection. Hospitalist Dr. Moon and I reviewed the case and presentation. He is comfortable admitting the patient with antibiotic regimen started for what appears to be UTI causing progression of dementia here as well as generalized weakness and inability to take care of herself at home. Family has been comfortable this plan. No other acute issues at this time. Patient otherwise clinically stable will be admitted. We will continue to observe in emergency room to the admission process is completed patient does have chronic atrial fibrillation. She does not disclose being on any blood thinners at this time. Coagulation studies will be added on. Patient is otherwise clinically stable. Time: 20:20 Vital Signs Temperature 97.9 F 03/11/18 17:42 Pulse Rate 88 03/11/18 17:42 Respiratory Rate 20 03/11/18 17:42 Blood Pressure 116/62 03/11/18 17:42 O2 Sat by Pulse Oximetry 96 03/11/18 17:42 Temperature 97.9 F 03/11/18 17:42 Pulse Rate 88 03/11/18 17:42 Respiratory Rate 20 03/11/18 17:42 Blood Pressure 116/62 03/11/18 17:42 O2 Sat by Pulse Oximetry 96 03/11/18 17:42 Oxygen Delivery Oxygen Delivery Room Air Medical Decision Making - MDM Narrative Medical decision making narrative: Confusion, urinary tract infection, weakness - Medical Records Medical records reviewed: Yes I reviewed the patient's medical records. - Lab Data Lab results reviewed: Yes I reviewed the patient's lab results. Result diagrams: 03/11/18 17:57 03/11/18 17:57 Lab Results 03/11/18 03/11/18 Range/Units 17:57 17:57 WBC 33.0 H* (4.3-11.1) K/mcL RBC 4.85 (3.82-4.97) M/mcL Hgb 13.0 (11.5-15.4) g/dL Hct 38.3 (35.3-44.9) % MCV 79.0 L (83.0-100.0) fL MCH 26.8 L (28.0-33.3) pg MCHC 33.9 (31.6-35.5) g/dL RDW 17.2 H (11.5-14.5) % Plt Count 83 L (140-400) K/mcL MPV 11.1 (9.4-12.4) fL Immature Gran % 1.7 (0-4) % Seg Neutrophils % 55.6 % Lymphocytes % 5.5 % Monocytes % 37.0 % Eosinophils % 0.0 % Basophils % 0.2 % Neutrophils # 18.4 H (1.6-8.9) K/mcL Lymphocytes # 1.8 (0.6-4.6) K/mcL Monocytes # 12.2 H (0.0-1.3) K/mcL Eosinophils # 0.0 (0.0-0.6) K/mcL Basophils # 0.1 (0.0-0.2) K/mcL Reactive Lymphocytes Present A (Not Present) Platelet Estimate Decreased L (Normal) Sodium 138 (136-145) mEq/L Potassium 3.6 (3.5-5.1) mEq/L Chloride 103 (98-107) mEq/L Carbon Dioxide 25 (23-29) mEq/L BUN 21 (8-23) mg/dL Creatinine 1.35 H (0.60-1.20) mg/dL Est GFR ( Amer) 45 L (> 60) Est GFR (Non-Af Amer) 37 L (> 60) BUN/Creatinine Ratio 16 (6-26) Glucose 218 H (70-105) mg/dL Calculated Osmolality 296 (280-300) Calcium 9.9 (8.6-10.3) mg/dL Total Bilirubin 1.0 (0.3-1.0) mg/dL AST 11 L (13-39) Units/L ALT 8 (7-52) Units/L Alkaline Phosphatase 51 (34-104) Units/L Troponin I < 0.03 (< 0.04) ng/mL Serum Total Protein 6.7 (6.4-8.9) g/dL Albumin 3.8 (3.5-5.7) g/dL Globulin 2.9 (2.4-3.5) g/dL Albumin/Globulin Ratio 1.3 (1.1-2.2) Amylase 28 L (29-103) Units/L Lipase 36 (11-82) Units/L - Radiology Data Radiology results reviewed: Yes I reviewed the patient's radiology results. CT that is unremarkable. Chest x-ray is stable - EKG Data EKG #1 EKG attestation: Yes I reviewed and interpreted this EKG. EKG results narrative: Patient is stable atrial fibrillation with a ventricular rate of 107 on initial presentation. QRS duration of 83. QTC of 377. No acute signs of ST segment elevation or abnormality. Compared to an EKG reviewed on 10/19/17 with no acute changes
[2018-03-11 18:55] LABS: Thyroid Stimulating Hormone 1.063 mcIU/mL (0.340-5.600)
[2018-03-11 19:09] LABS: Bilirubin,Urine Negative (Negative); Blood,Urine Moderate (Negative); Clarity,Urine Cloudy (Clear); Color,Urine Yellow (Yellow); Glucose,Urine (UA) Normal (Normal); Ketones,Urine Negative (Negative); Leukocyte Esterase,Urine Large (Negative); Nitrite,Urine Positive (Negative); Protein,Urine 100 mg/dL (Neg-Trace); Specific Gravity,Urine 1.021 (1.010-1.025); Urobilinogen,Urine Normal (Normal)
[2018-03-11 19:13] LABS: Bacteria,Urine Many per hpf (None-Few); Hyaline Casts,Urine None Seen per lpf (None-Few); RBC,Urine 30-50 per hpf (0-3); Squamous Epithelial Cell,Urine Many per lpf (None-Few); WBC,Urine TNTC per hpf (0-3)
[2018-03-11] MEDS ORDERED: cefTRIAXone 2,000 MG in 0.9 % Sodium Chloride Mini Bag 100 ML IVPB ONE (19:26)
[2018-03-11] MEDS ORDERED: 0.9 % Sodium Chloride 1,000 ML ONE (19:56)
--- NOTE | 2018-03-11 20:33 | Internal Med History&Physical ---
Date of Encounter: 03/12/18 Time of Encounter: 20:30 Internal Medicine - H&P: HPI Chief complaint: Confusion Admitted From: Emergency Dept Plans for Post Hospital Care: Home History of present illness: Ms. 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 This was noticed by her daughter over the last few days. Worse today with confusion. At baseline the patient has some dementia as she is only alert to self and place. No reported fever. In the ED workup revealed WBC count of 33 which is higher than her last WBC count however she has had this high and even higher before. Workup in the ED showed UTI. CT head was unremarkable. Chest x-ray was unremarkable. The patient was given ceftriaxone. Denies fever, chills, headache, blurry vision, chest pain, shortness of breath, abdominal pain, diarrhea, constipation, numbness, or tingling Past Med Surg Social Fam HX - Past Medical History Medical history: cancer, dementia, hyperlipidemia, hypertension, other Psychiatric history: no psych history - Past Surgical History Surgical History: orthopedic, other - Social History Smoking Status: Never smoker Smokeless Tobacco Status: No Alcohol use: none Drug use: none - Family History Father Adopted: No Living Status: Hx Family Neurologic Disorders: Yes (aneryism) Sister Hx Family Cancer: Yes (colon) Internal Medicine - H&P: Meds Albuterol Sulfate [Proair [place]] 2 puff IH Q4H PRN 09/05/15 [History] Atorvastatin [Lipitor] 40 mg PO HS 09/05/15 [History] HYDROcodone/Acet 7.5/325 mg [[place] 7.5-325 mg] 1 tab PO Q6H PRN 09/05/15 [ History] Budesonide/Formoterol 160/4.5 [Symbicort 160/4.5] 2 puff IH BIDR 03/11/18 [ History] Ferrous Sulfate [Iron] 325 mg PO DAILY 03/11/18 [History] Gabapentin [Neurontin] 100 mg PO BID 03/11/18 [History] Potassium Chloride 40 meq PO DAILY 03/11/18 [History] amLODIPine [Norvasc] 5 mg PO BID 03/11/18 [History] 3 Allergy/AdvReac Type Severity Reaction Status Date / Time Penicillins Allergy Hives Verified 03/11/18 20:00 All Systems PM: A 10-system review of systems was performed and is negative for pertinent findings except as documented above in the HPI. Review of systems: All systems reviewed are negative except for as mentioned above - Constitutional Vitals: Temp Pulse Resp BP Pulse Ox 97.9 F 88 20 116/62 96 03/11/18 17:42 03/11/18 17:42 03/11/18 17:42 03/11/18 17:42 03/11/18 17:42 Exam: GEN: NAD, patient is alert oriented 2 HEENT: AT, NC, No cyanosis, oral mucosa is moist, No JVD Lymphatics: No lymphadenoapthy Eyes: Extrocular muscles intact, anicteric CVS:RRR. S1, S2, No m/r/g RESP: CTAB ABD: Soft, NT, ND, +BS EXT: No edema, No rashes, 2+ DP NEURO: Nonfocal, CN II-XII intact, No focal motor or sensory deficits Psych: Cooperative, Not anxious or depressed Internal Med - H&P Results - Labs CBC & Chem 7: 03/11/18 17:57 03/11/18 17:57 Labs: Short CBC 03/11/18 Range/Units 17:57 WBC 33.0 H* (4.3-11.1) K/mcL Hgb 13.0 (11.5-15.4) g/dL Hct 38.3 (35.3-44.9) % Plt Count 83 L (140-400) K/mcL Neutrophils # 18.4 H (1.6-8.9) K/mcL BMP 03/11/18 17:57 Sodium 138 Potassium 3.6 Chloride 103 Carbon Dioxide 25 BUN 21 Creatinine 1.35 H Glucose 218 H Calcium 9.9 Cardiac Enzymes 03/11/18 Range/Units 17:57 Troponin I < 0.03 (< 0.04) ng/mL Liver Function 03/11/18 Range/Units 17:57 Total Bilirubin 1.0 (0.3-1.0) mg/dL AST 11 L (13-39) Units/L ALT 8 (7-52) Units/L Alkaline Phosphatase 51 (34-104) Units/L Albumin 3.8 (3.5-5.7) g/dL Urine 03/11/18 Range/Units 19:05 Urine Color Yellow (Yellow) Urine Clarity Cloudy A (Clear) Urine pH 6.0 (5.0-8.0) pH Units Ur Specific [place] 1.021 (1.010-1.025) Urine Protein 100 H (Neg-Trace) mg/dL Urine Glucose (UA) Normal (Normal) mg/dL - Impressions ITS Impressions Chest X-Ray 03/11/18 17:47 IMPRESSION: No acute process. D/ / Arie Medel MD / Arie Medel MD Interpreting Provider: Arie Medel MD Head CT 03/11/18 18:23 IMPRESSION: No acute intracranial abnormality. Mild age related volume loss and moderate white matter disease which likely reflects sequela of chronic microvascular ischemia. D/ / Jose Hopper / Jose Hopper Interpreting Provider: Jose Hopper - Assessment and plan (1) Encephalopathy acute Current Visit: Yes Status: Acute Assessment and plan: This is likely stemming from her urine infection. We will treat underlying cause as below. We will monitor. (2) UTI (urinary tract infection) Current Visit: Yes Status: Acute Assessment and plan: We will continue the patient on ceftriaxone. Follow up on cultures. Gentle hydration. Qualifiers: Urinary tract infection type: site unspecified Hematuria presence: without hematuria Qualified Code(s): N39.0 - Urinary tract infection, site not specified (3) CMML (chronic myelomonocytic leukemia) Current Visit: No Status: Acute Assessment and plan: Follows up with hematology in the outpatient setting. Conservative management. Qualifiers: Leukemia Active/Remission status: in remission Qualified Code(s): C93.11 - Chronic myelomonocytic leukemia, in remission (4) Hyperlipemia Current Visit: No Status: Acute Assessment and plan: Resume home medications. Qualifiers: Hyperlipidemia type: pure hypercholesterolemia Qualified Code(s): E78.00 - Pure hypercholesterolemia, unspecified; E78.0 - Pure hypercholesterolemia (5) Chronic kidney disease, stage III (moderate) Current Visit: No Status: Chronic Assessment and plan: Stable around baseline. We will continue to monitor. (6) HTN (hypertension) Current Visit: No Status: Chronic Assessment and plan: Resume home antihypertensives Qualifiers: Hypertension type: essential hypertension Qualified Code(s): I10 - Essential (primary) hypertension (7) DVT prophylaxis Current Visit: Yes Status: Acute Assessment and plan: SCDs - Time Spent With Patient Total time spent is greater than 50% in coordination of care (as documented) at patient's floor/unit and/or counseling patient:
[2018-03-11] MEDS ORDERED: Naloxone 0.4 MG/ML INJ IVP PRN (20:35)
[2018-03-11] MEDS ORDERED: Acetaminophen 325 MG TABLET PO PRN (20:35)
[2018-03-11 20:40] LABS: INR 1.2; Prothrombin Time 13.2 Seconds (9.4-12.1)
[2018-03-11 20:42] LABS: Activated Partial Thrombo Time 34.4 Seconds (26.0-36.0)
[2018-03-11] MEDS: Budesonide/Formoterol 160/4.5 MDI IH SCH (22:05)
[2018-03-11] MEDS: Gabapentin 100 MG CAPSULE PO SCH (22:55)
[2018-03-11] MEDS: amLODIPine 5 MG TABLET PO SCH (22:55)
[2018-03-11] MEDS: 0.9 % Sodium Chloride 1,000 ML IVC SCH ×2 (22:55→22:59)
[2018-03-12] MEDS ORDERED: 0.9 % Sodium Chloride 500 ML IVC ONE (05:05)
[2018-03-12 05:16] LABS: Basophils % 0.2 %; Hemoglobin 11.8 g/dL (11.5-15.4); Red Cell Distribution Width 17.2 % (11.5-14.5)
[2018-03-12 05:17] LABS: Basophils # 0.1 K/mcL (0.0-0.2); Eosinophils % 0.1 %; Hematocrit 36.9 % (35.3-44.9); Immature Granulocytes % 1.3 % (0-4); Lymphocytes # 1.8 K/mcL (0.6-4.6); Lymphocytes % 5.8 %; Mean Corpuscular Hemoglobin 25.6 pg (28.0-33.3); Mean Platelet Volume 11.5 fL (9.4-12.4); Monocytes # 12.3 K/mcL (0.0-1.3); Monocytes % 40.4 %; Neutrophils # 15.9 K/mcL (1.6-8.9); Red Blood Count 4.61 M/mcL (3.82-4.97); Segmented Neutrophils % 52.2 %
[2018-03-12 05:19] LABS: Platelet Count 57 K/mcL (140-400)
[2018-03-12 05:34] LABS: Platelet Estimate Decreased (Normal)
[2018-03-12 05:35] LABS: Anisocytosis 1+ (Not Present); Calcium 9.2 mg/dL (8.6-10.3); Magnesium 1.9 mg/dL (1.6-2.6); Potassium 3.4 mEq/L (3.5-5.1); Reactive Lymphocytes Present (Not Present)
[2018-03-12] MEDS: 0.9 % Sodium Chloride 1,000 ML IVC SCH (06:08)
[2018-03-12] MEDS: Budesonide/Formoterol 160/4.5 MDI IH SCH ×2 (07:32→20:11)
[2018-03-12] MEDS: cefTRIAXone 1,000 MG in Water for inj. (sterile) 20 ML 10 ML IVP SCH (09:00)
[2018-03-12] MEDS: amLODIPine 5 MG TABLET PO SCH ×2 (09:00→20:05)
[2018-03-12] MEDS: Gabapentin 100 MG CAPSULE PO SCH ×2 (09:00→20:05)
[2018-03-12] MEDS ORDERED: *HR* Metoprolol 5 MG/5 ML VIAL IVP ONE (10:20)
--- NOTE | 2018-03-12 15:23 | Event Note ---
Date of Encounter: 03/12/18 Time of Encounter: 15:00 - Cardiology Event Note EKG and telemetry reviewed with Dr. Carrera. EKG shows SVT and sinus tachycardia. No evidence of atrial fibrillation at this time. Primary team notified and beta- grace will be started. Please call with questions or changes.
--- NOTE | 2018-03-12 19:16 | Internal Med Progress Note ---
Date of Encounter: 03/12/18 Time of Encounter: 09:45 - Assessment and plan (1) Sepsis Current Visit: Yes Status: Acute Assessment and plan: Pt with known source of infection, UTI, fever, tachycardia, hypotension. Lactic ordered, fluid bolus ordered, lactic and blood cultures 2 ordered. Hepatic panel ordered. Closely monitor patient for worsening condition, patient has increased risk for due to age. Telemetry IV fluid bolus Monitor labs and vital signs Qualifiers: Sepsis type: sepsis due to unspecified organism Qualified Code(s): A41.9 - Sepsis, unspecified organism (2) HTN (hypertension) Current Visit: Yes Status: Chronic Assessment and plan: Pt with hypotension throughout the day. Continue to monitor vitals. Continue telemetry. Qualifiers: Hypertension type: essential hypertension Qualified Code(s): I10 - Essential (primary) hypertension (3) Hyperlipemia Current Visit: Yes Status: Acute Assessment and plan: Chronic. Continue home medications. Qualifiers: Hyperlipidemia type: pure hypercholesterolemia Qualified Code(s): E78.00 - Pure hypercholesterolemia, unspecified; E78.0 - Pure hypercholesterolemia (4) Chronic kidney disease, stage III (moderate) Current Visit: Yes Status: Chronic Assessment and plan: Renal function improving from admission. Serum creatinine 1.2; GFR 40. This appears to be around patient's baseline. Continue to avoid nephrotoxins. (5) CMML (chronic myelomonocytic leukemia) Current Visit: Yes Status: Chronic Assessment and plan: Follows up with hematology in the outpatient setting. Conservative management. WBC 30s, continue to monitor. Qualifiers: Leukemia Active/Remission status: in remission Qualified Code(s): C93.11 - Chronic myelomonocytic leukemia, in remission (6) Encephalopathy acute Current Visit: Yes Status: Acute Assessment and plan: Likely secondary to UTI. Pt is alert and awake, oriented to name only. Patient with CMML, chronically elevated white count, patient has had a fever today, has been tachycardic, hypotensive, meets sepsis criteria. Continue to monitor patient for safety continue IV fluids and IV antibiotics Monitor labs and vital signs (7) UTI (urinary tract infection) Current Visit: Yes Status: Acute Assessment and plan: UA indicative of UTI. Culture received and pending. Rocephin 1 gram IV daily Pt symptomatic with confusion and weakness. Pt meets sepsis criteria with source of infection, tachycardia, hypotension. Qualifiers: Urinary tract infection type: site unspecified Hematuria presence: without hematuria Qualified Code(s): N39.0 - Urinary tract infection, site not specified (8) DVT prophylaxis Current Visit: Yes Status: Acute Assessment and plan: SCDs ordered. - Time Spent With Patient Total time spent is greater than 50% in coordination of care (as documented) at patient's floor/unit and/or counseling patient: less than 15 minutes - Subjective Interval history: Pt was seen and assessed at bedside at 0945. Pt is alert and awake, oriented to name only. Spoke with daughter later in the day who reports that patient has been confused for a few days and was weak. During physical exam this morning, patient was found to have an irregular heartbeat. There is no history of A. fib or any irregular heartbeat in her history. 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 Rate was in the 150s. Metoprolol was never given due to hypotension. She was asymptomatic, she denied any chest pain, shortness of breath, headache, blurred vision, abdominal pain, nausea, vomiting, diarrhea. - Constitutional Vitals: Temp Pulse Resp BP Pulse Ox 97.9 F 89 16 104/66 93 03/12/18 18:49 03/12/18 18:49 03/12/18 18:49 03/12/18 18:49 03/12/18 18:49 General appearance: Present: cooperative, A&O X 1, pleasant, no acute distress. Absent: answers questions appropriately - Head Head exam: Present: atraumatic, normal inspection, normocephalic - Eye Eye exam: Present: normal appearance, conjuntiva pink, sclera anicteric - Neck Neck exam general surgery: Present: supple, trachea midline. Absent: lymphadenopathy - Respiratory Respiratory exam: Present: CTAB. Absent: accessory muscle use, rales, rhonchi, wheezes - Cardiovascular Cardiovascular exam: Present: RRR, +S1, +S2. Absent: diastolic murmur, gallop, rubs, systolic murmur - GI/Abdominal GI/Abdominal exam: Present: normal bowel sounds, soft, no peritoneal signs. Absent: distended, hepatomegaly, tenderness - Extremities Exam Extremities exam: Present: warm, radial pulses palpable and symmetrical. Absent : calf tenderness, cyanotic, pedal edema - Neurological Exam Neurological exam: Present: alert, altered, no focal deficits. Absent: oriented X3, facial droop, speech deficit - Skin Skin exam: Present: dry, intact, normal color, warm. Absent: rash Internal Medicine: Result - Labs CBC & Chem 7: 03/12/18 03:49 03/12/18 03:49 Labs: Short CBC 03/12/18 Range/Units 03:49 WBC 30.4 H* (4.3-11.1) K/mcL Hgb 11.8 (11.5-15.4) g/dL Hct 36.9 (35.3-44.9) % Plt Count 57 L (140-400) K/mcL Neutrophils # 15.9 H (1.6-8.9) K/mcL BMP 03/12/18 03:49 Sodium 139 Potassium 3.4 L Chloride 105 Carbon Dioxide 26 BUN 20 Creatinine 1.27 H Glucose 132 H Calcium 9.2 - ABG Interpretation ABG results: PT/INR, D-dimer PT 13.2 Seconds (9.4-12.1) H 03/11/18 20:20 Consult Discharge Plan - Plan Referrals: Jose Manriquez Jr, MD [Primary Care Provider] - Sepsis Event Note - Evaluation Sepsis Screen: Sepsis Risk Current Stage of Sepsis: sepsis Possible Source of Sepsis: genitourinary - Focused Exam Date of Encounter: 03/12/18 Time of Encounter: 09:45 Vital Signs: Vital Signs Temp Pulse Resp BP Pulse Ox 03/12/18 18:49 97.9 F 89 16 104/66 93 03/12/18 15:44 98 F 85 16 90/55 91 03/12/18 10:34 92/57 03/12/18 10:16 99.9 F H 86 16 94/57 90 03/12/18 07:33 17 93 Respiratory Exam: Present: decreased breath sounds Cardiovascular Exam: Present: tachycardia, irregular rhythm Capillary Refill: < 2 seconds Peripheral Pulse Strength: 1+ faint Peripheral Pulse Location: Radial Skin Exam: normal turgor - Bedside Monitoring CVP Measures: less than 8 ScvO2 measures: greater than or equal to 70% (No CVP measures or Scv02 measures) Bedside Ultrasound Performed: No Passive Leg raise/fluid bolus: not performed
[2018-03-12] MEDS ORDERED: 0.9 % Sodium Chloride 1,000 ML IVC ONE (19:25)
[2018-03-12 20:07] LABS: Immature Granulocytes % 1.4 % (0-4); Red Cell Distribution Width 17.2 % (11.5-14.5)
[2018-03-12 20:09] LABS: Basophils # 0.1 K/mcL (0.0-0.2); Basophils % 0.2 %; Hematocrit 33.6 % (35.3-44.9); Hemoglobin 11.3 g/dL (11.5-15.4); Lymphocytes # 1.4 K/mcL (0.6-4.6); Lymphocytes % 4.3 %; Mean Corpuscular HGB Conc 33.6 g/dL (31.6-35.5); Mean Corpuscular Hemoglobin 26.7 pg (28.0-33.3); Mean Corpuscular Volume 79.4 fL (83.0-100.0); Monocytes # 12.6 K/mcL (0.0-1.3); Monocytes % 38.9 %; Neutrophils # 17.9 K/mcL (1.6-8.9); Platelet Count 62 K/mcL (140-400); Red Blood Count 4.23 M/mcL (3.82-4.97); Segmented Neutrophils % 55.2 %
[2018-03-12 20:13] LABS: INR 1.3; Prothrombin Time 13.7 Seconds (9.4-12.1)
[2018-03-12 20:16] LABS: Activated Partial Thrombo Time 32.9 Seconds (26.0-36.0)
[2018-03-12 20:27] LABS: Albumin 3.2 g/dL (3.5-5.7); Albumin/Globulin Ratio 1.2 (1.1-2.2); Bilirubin,Direct 0.2 mg/dL (0.0-0.2); Bilirubin,Indirect 0.5 mg/dL (0.0-1.2); Bilirubin,Total 0.7 mg/dL (0.3-1.0); Calcium 8.6 mg/dL (8.6-10.3); Globulin 2.6 g/dL (2.4-3.5); Potassium 3.2 mEq/L (3.5-5.1); Total Protein 5.8 g/dL (6.4-8.9)
[2018-03-12 20:32] LABS: Platelet Estimate Decreased (Normal)
[2018-03-12 20:33] LABS: Anisocytosis 1+ (Not Present); Reactive Lymphocytes Present (Not Present)
[2018-03-13 06:01] LABS: Mean Platelet Volume 11.7 fL (9.4-12.4); Red Cell Distribution Width 17.2 % (11.5-14.5)
[2018-03-13 06:02] LABS: Basophils # 0.1 K/mcL (0.0-0.2); Basophils % 0.2 %; Hematocrit 32.1 % (35.3-44.9); Hemoglobin 10.3 g/dL (11.5-15.4); Immature Granulocytes % 1.4 % (0-4); Lymphocytes # 1.3 K/mcL (0.6-4.6); Lymphocytes % 5.1 %; Mean Corpuscular HGB Conc 32.1 g/dL (31.6-35.5); Mean Corpuscular Hemoglobin 25.9 pg (28.0-33.3); Mean Corpuscular Volume 80.7 fL (83.0-100.0); Monocytes # 9.1 K/mcL (0.0-1.3); Red Blood Count 3.98 M/mcL (3.82-4.97); Segmented Neutrophils % 58.3 %
[2018-03-13 06:19] LABS: Calcium 8.5 mg/dL (8.6-10.3); Neutrophils # 15.2 K/mcL (1.6-8.9); Platelet Count 54 K/mcL (140-400)
[2018-03-13 07:06] LABS: Platelet Estimate Decreased (Normal)
[2018-03-13 07:07] LABS: Anisocytosis 1+ (Not Present); Macrocytosis Present (Not Present)
[2018-03-13] MEDS: Budesonide/Formoterol 160/4.5 MDI IH SCH ×2 (07:42→20:03)
[2018-03-13] MEDS: Gabapentin 100 MG CAPSULE PO SCH ×2 (07:58→19:57)
[2018-03-13] MEDS: Metoprolol XL (24 HR) Succ 25 MG TAB.ER.24H PO SCH (07:58)
[2018-03-13] MEDS: cefTRIAXone 1,000 MG in Water for inj. (sterile) 20 ML 10 ML IVP SCH (07:58)
[2018-03-13] MEDS: amLODIPine 5 MG TABLET PO SCH ×2 (07:58→19:53)
--- NOTE | 2018-03-13 08:17 | Electrocardiograph Report ---
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
--- NOTE | 2018-03-13 08:28 | Electrocardiograph Report ---
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
[2018-03-13] MEDS: *HR* HYDROcodone/Acet 7.5/325 mg TABLET PO PRN (16:58)
--- NOTE | 2018-03-13 17:03 | Internal Med Progress Note ---
Date of Encounter: 03/13/18 Time of Encounter: 10:20 - Assessment and plan (1) Sepsis Current Visit: Yes Status: Acute Assessment and plan: Pt with chronically elevated WBC due to CMML, Pt has UTI, has been afebrile, no longer tachycardic, and BP is WNL. Lactic WNL. BP responded well to IVF bolus. Blood cultures pending. Continue IV antibiotics, 02, IVF. Qualifiers: Sepsis type: sepsis due to unspecified organism Qualified Code(s): A41.9 - Sepsis, unspecified organism (2) HTN (hypertension) Current Visit: Yes Status: Chronic Assessment and plan: Normotensive. Continue home medications. Continue telemetry. Qualifiers: Hypertension type: essential hypertension Qualified Code(s): I10 - Essential (primary) hypertension (3) Hyperlipemia Current Visit: Yes Status: Acute Assessment and plan: Chronic. Continue statin Qualifiers: Hyperlipidemia type: pure hypercholesterolemia Qualified Code(s): E78.00 - Pure hypercholesterolemia, unspecified; E78.0 - Pure hypercholesterolemia (4) Chronic kidney disease, stage III (moderate) Current Visit: Yes Status: Chronic Assessment and plan: Renal function continues to improve. Serum creatinine 1.16; GFR 44. \ Continue to avoid nephrotoxins. (5) CMML (chronic myelomonocytic leukemia) Current Visit: Yes Status: Chronic Assessment and plan: Follows up with hematology in the outpatient setting. Conservative management. WBC decreasing, 26.0 today, continue to monitor. Qualifiers: Leukemia Active/Remission status: in remission Qualified Code(s): C93.11 - Chronic myelomonocytic leukemia, in remission (6) Encephalopathy acute Current Visit: Yes Status: Acute Assessment and plan: Likely secondary to UTI. Pt is alert and awake, oriented to name, president, and place today. Appears to be improving. Sepsis criteria appear to have abated, we will continue to monitor. Continue to monitor patient for safety continue IV fluids and IV antibiotics Monitor labs and vital signs (7) UTI (urinary tract infection) Current Visit: Yes Status: Acute Assessment and plan: UA indicative of UTI. Initial culture gram-negative rods. Final culture and sensitivity pending. Rocephin 1 gram IV daily Pt symptomatic with confusion and weakness. Pt meets sepsis criteria with source of infection, tachycardia, hypotension. Qualifiers: Urinary tract infection type: site unspecified Hematuria presence: without hematuria Qualified Code(s): N39.0 - Urinary tract infection, site not specified (8) DVT prophylaxis Current Visit: Yes Status: Acute Assessment and plan: SCDs ordered. - Time Spent With Patient Total time spent is greater than 50% in coordination of care (as documented) at patient's floor/unit and/or counseling patient: less than 15 minutes - Subjective Interval history: Pt was seen and assessed at bedside at 1020. Pt is alert and awake, oriented to name and place, appears more alert today than yesterday. Pt states that she is feeling better, she denies any chest pain, shortness of breath, headache, blurred vision, abdominal pain, nausea, vomiting, diarrhea. - Constitutional Vitals: Temp Pulse Resp BP Pulse Ox 98.7 F 81 16 102/54 95 03/13/18 15:46 03/13/18 15:46 03/13/18 15:46 03/13/18 15:46 03/13/18 15:46 General appearance: Present: cooperative, A&O X 2, pleasant, no acute distress. Absent: answers questions appropriately - Head Head exam: Present: atraumatic, normocephalic - Eye Eye exam: Present: PERRL, conjuntiva pink, sclera anicteric Pupils: Present: PERRL - Neck Neck exam general surgery: Present: supple, trachea midline. Absent: lymphadenopathy - Respiratory Respiratory exam: Present: CTAB. Absent: accessory muscle use, rales, rhonchi, wheezes - Cardiovascular Cardiovascular exam: Present: RRR, +S1, +S2. Absent: diastolic murmur, gallop, rubs, systolic murmur - GI/Abdominal GI/Abdominal exam: Present: normal bowel sounds, soft. Absent: distended, tenderness - Extremities Exam Extremities exam: Present: normal capillary refill, warm, radial pulses palpable and symmetrical. Absent: calf tenderness, cyanotic, pedal edema - Neurological Exam Neurological exam: Present: alert, CN II-XII intact, oriented X3, no focal deficits. Absent: facial droop, speech deficit - Skin Skin exam: Present: dry, intact, warm. Absent: rash Internal Medicine: Result - Labs CBC & Chem 7: 03/13/18 05:23 03/13/18 05:23 Labs: Short CBC 03/12/18 03/13/18 Range/Units 19:57 05:23 WBC 32.4 H* 26.0 H (4.3-11.1) K/mcL Hgb 11.3 L 10.3 L (11.5-15.4) g/dL Hct 33.6 L 32.1 L (35.3-44.9) % Plt Count 62 L 54 L (140-400) K/mcL Neutrophils # 17.9 H 15.2 H (1.6-8.9) K/mcL BMP 03/12/18 03/13/18 19:57 05:23 Sodium 138 141 Potassium 3.2 L 3.0 L Chloride 108 H 110 H Carbon Dioxide 22 L 23 BUN 23 18 Creatinine 1.37 H 1.16 Glucose 159 H 118 H Calcium 8.6 8.5 L Liver Function 03/12/18 Range/Units 19:57 Total Bilirubin 0.7 (0.3-1.0) mg/dL Direct Bilirubin 0.2 (0.0-0.2) mg/dL AST 10 L (13-39) Units/L ALT 6 L (7-52) Units/L Alkaline Phosphatase 44 (34-104) Units/L Albumin 3.2 L (3.5-5.7) g/dL - ABG Interpretation ABG results: PT/INR, D-dimer PT 13.7 Seconds (9.4-12.1) H 03/12/18 19:57 Consult Discharge Plan - Plan Referrals: Jose Manriquez Jr, MD [Primary Care Provider] -
[2018-03-14] MEDS: *HR* HYDROcodone/Acet 7.5/325 mg TABLET PO PRN (00:32)
[2018-03-14 07:04] LABS: Hematocrit 30.6 % (35.3-44.9); Hemoglobin 10.3 g/dL (11.5-15.4); Mean Corpuscular HGB Conc 33.7 g/dL (31.6-35.5); Mean Corpuscular Volume 80.3 fL (83.0-100.0); Mean Platelet Volume 12.9 fL (9.4-12.4); Nucleated Red Blood Cells 0.1 /100 WBC (0); Red Blood Count 3.81 M/mcL (3.82-4.97); Red Cell Distribution Width 16.9 % (11.5-14.5)
[2018-03-14 07:10] LABS: Platelet Count 41 K/mcL (140-400)
[2018-03-14] MEDS: Budesonide/Formoterol 160/4.5 MDI IH SCH ×2 (07:32→20:58)
[2018-03-14 07:33] LABS: Calcium 8.6 mg/dL (8.6-10.3); Potassium 3.5 mEq/L (3.5-5.1)
[2018-03-14 08:15] LABS: Monocytes # 5.7 K/mcL (0.0-1.3); Platelet Estimate Decreased (Normal)
[2018-03-14] MEDS: Gabapentin 100 MG CAPSULE PO SCH ×2 (08:38→20:23)
[2018-03-14] MEDS: cefTRIAXone 1,000 MG in Water for inj. (sterile) 20 ML 10 ML IVP SCH (08:39)
[2018-03-14] MEDS: Metoprolol XL (24 HR) Succ 25 MG TAB.ER.24H PO SCH (08:39)
[2018-03-14] MEDS: amLODIPine 5 MG TABLET PO SCH ×2 (08:39→20:23)
[2018-03-14] MEDS: predniSONE 10 MG TABLET PO SCH (12:28)
[2018-03-14] MEDS ORDERED: levoFLOXacin 500 MG TABLET PO SCH (17:00)
--- NOTE | 2018-03-14 17:17 | Internal Med Progress Note ---
Date of Encounter: 03/14/18 Time of Encounter: 08:15 - Assessment and plan (1) Sepsis Current Visit: Yes Status: Acute Assessment and plan: Pt with chronically elevated WBC due to CMML, Pt has UTI, has been afebrile, no longer tachycardic, and BP is mildly hypotensive, will monitor. Lactic WNL. Blood cultures negative x 2. Continue telemetry and monitor labs and vitals. . Qualifiers: Sepsis type: sepsis due to unspecified organism Qualified Code(s): A41.9 - Sepsis, unspecified organism (2) HTN (hypertension) Current Visit: Yes Status: Chronic Assessment and plan: Chronic. Continue home medications. Continue telemetry. Qualifiers: Hypertension type: essential hypertension Qualified Code(s): I10 - Essential (primary) hypertension (3) Hyperlipemia Current Visit: Yes Status: Acute Assessment and plan: Chronic. Continue home dose of statin Qualifiers: Hyperlipidemia type: pure hypercholesterolemia Qualified Code(s): E78.00 - Pure hypercholesterolemia, unspecified; E78.0 - Pure hypercholesterolemia (4) Chronic kidney disease, stage III (moderate) Current Visit: Yes Status: Chronic Assessment and plan: Renal function continues to improve. Serum creatinine 1.12; GFR 46. \ Continue to avoid nephrotoxins. Pt has been switched to po Levaquin, will need to give q48 due to CKD (5) CMML (chronic myelomonocytic leukemia) Current Visit: Yes Status: Chronic Assessment and plan: Pt reports today that she does not get treatment for CMML and does not follow with cancer center. Conservative management. WBC decreasing, 25.7 today, continue to monitor. Qualifiers: Leukemia Active/Remission status: in remission Qualified Code(s): C93.11 - Chronic myelomonocytic leukemia, in remission (6) Encephalopathy acute Current Visit: Yes Status: Resolved Assessment and plan: Resolved. Pt is improving. Likely due to UTI. Pt appears to be more alert, answers questions appropriately today. Pt likely has some baseline dementia. Continue to monitor for safety and falls. (7) UTI (urinary tract infection) Current Visit: Yes Status: Acute Assessment and plan: UA indicative of UTI. Final culture shows pansensitive Escherichia coli. Levaquin 500 mg by mouth today, will need to watch for renal function. Rocephin 1 gram IV daily has been stopped. Pt symptomatic with confusion and weakness, improving. Qualifiers: Urinary tract infection type: site unspecified Hematuria presence: without hematuria Qualified Code(s): N39.0 - Urinary tract infection, site not specified (8) DVT prophylaxis Current Visit: Yes Status: Acute Assessment and plan: SCDs ordered. - Time Spent With Patient Total time spent is greater than 50% in coordination of care (as documented) at patient's floor/unit and/or counseling patient: less than 15 minutes - Subjective Interval history: Pt was seen and assessed at bedside at 0815. Pt is alert and awake, oriented to name and place, mentation continues to improve. Pt states that she is feeling better, she denies any chest pain, shortness of breath, headache, blurred vision , abdominal pain, nausea, vomiting, diarrhea. Denies urinary s/s. - Constitutional Vitals: Temp Pulse Resp BP Pulse Ox 98.1 F 87 16 93/57 91 03/14/18 10:44 03/14/18 10:44 03/14/18 10:44 03/14/18 10:44 03/14/18 10:44 General appearance: Present: cooperative, A&O X 2, pleasant, no acute distress. Absent: answers questions appropriately - Head Head exam: Present: atraumatic, normal inspection, normocephalic - Eye Eye exam: Present: normal appearance, conjuntiva pink, sclera anicteric - Neck Neck exam general surgery: Present: supple, trachea midline. Absent: lymphadenopathy, tenderness - Respiratory Respiratory exam: Present: CTAB. Absent: accessory muscle use, rales, respiratory distress, rhonchi, wheezes - Cardiovascular Cardiovascular exam: Present: RRR, +S1, +S2. Absent: diastolic murmur, gallop, rubs, systolic murmur - GI/Abdominal GI/Abdominal exam: Present: normal bowel sounds, soft, no peritoneal signs. Absent: distended, hepatomegaly, tenderness - Extremities Exam Extremities exam: Present: normal capillary refill, normal inspection, warm, radial pulses palpable and symmetrical. Absent: calf tenderness, cyanotic, pedal edema - Neurological Exam Neurological exam: Present: alert, altered, no focal deficits. Absent: oriented X3, facial droop, speech deficit - Skin Skin exam: Present: dry, intact, normal color, warm. Absent: rash Internal Medicine: Result - Labs CBC & Chem 7: 03/14/18 04:43 03/14/18 04:43 Labs: Short CBC 03/14/18 Range/Units 04:43 WBC 25.7 H (4.3-11.1) K/mcL Hgb 10.3 L (11.5-15.4) g/dL Hct 30.6 L (35.3-44.9) % Plt Count 41 L (140-400) K/mcL Neutrophils # 19.0 H (1.6-8.9) K/mcL BMP 03/14/18 04:43 Sodium 139 Potassium 3.5 Chloride 108 H Carbon Dioxide 24 BUN 18 Creatinine 1.12 Glucose 116 H Calcium 8.6 - ABG Interpretation ABG results: PT/INR, D-dimer PT 13.7 Seconds (9.4-12.1) H 03/12/18 19:57 Consult Discharge Plan - Plan Referrals: Jose Manriquez Jr, MD [Primary Care Provider] -
[2018-03-15 06:17] LABS: Red Cell Distribution Width 16.7 % (11.5-14.5)
[2018-03-15 06:19] LABS: Basophils % 0.1 %; Hematocrit 30.5 % (35.3-44.9); Hemoglobin 10.2 g/dL (11.5-15.4); Immature Granulocytes % 2.4 % (0-4); Immature Platelets 17.5 % (1.1-6.1); Lymphocytes # 0.7 K/mcL (0.6-4.6); Lymphocytes % 3.8 %; Mean Corpuscular HGB Conc 33.4 g/dL (31.6-35.5); Mean Corpuscular Hemoglobin 26.7 pg (28.0-33.3); Mean Corpuscular Volume 79.8 fL (83.0-100.0); Mean Platelet Volume 12.8 fL (9.4-12.4); Monocytes # 5.1 K/mcL (0.0-1.3); Monocytes % 26.8 %; Neutrophils # 12.8 K/mcL (1.6-8.9); Red Blood Count 3.82 M/mcL (3.82-4.97); Segmented Neutrophils % 66.9 %
[2018-03-15 06:20] LABS: Platelet Count 63 K/mcL (140-400)
[2018-03-15 06:33] LABS: Calcium 9.3 mg/dL (8.6-10.3); Potassium 3.5 mEq/L (3.5-5.1)
[2018-03-15 06:43] LABS: Anisocytosis 1+ (Not Present); Microcytosis Present (Not Present); Platelet Estimate Decreased (Normal)
[2018-03-15] MEDS: Budesonide/Formoterol 160/4.5 MDI IH SCH (07:52)
[2018-03-15] MEDS: Metoprolol XL (24 HR) Succ 25 MG TAB.ER.24H PO SCH (08:24)
[2018-03-15] MEDS: amLODIPine 5 MG TABLET PO SCH (08:24)
[2018-03-15] MEDS: predniSONE 10 MG TABLET PO SCH (08:24)
[2018-03-15] MEDS: Gabapentin 100 MG CAPSULE PO SCH (08:25)
[2018-03-15] MEDS ORDERED: Metoprolol XL (24 HR) Succ 25 MG TAB.ER.24H PO ONE (09:00)
[2018-03-15] MEDS ORDERED: Metoprolol XL (24 HR) Succ 25 MG TAB.ER.24H PO SCH (09:00)
[2018-03-15 10:47] VITALS: BP 107/62
--- NOTE | 2018-03-15 11:26 | Discharge Summary ---
- NOTES TO OUTPATIENT PROVIDER Notes to Outpatient Provider: Pt was admitted and treated for UTI, acute encephalopathy secondary to UTI, sepsis. Pt noted to have thrombocytopenia and anemia, reactive to infection and sepsis. She was found to have tachycardia, monitor was normal sinus with frequent PACs. She has been placed on a beta grace and will need continued monitoring for vitals, possible increase. Orders not resulted at time of discharge: Pending orders 03/12/18 19:57 Culture,Blood [BC] Stat Date of Encounter: 03/15/18 Time of Encounter: 08:30 - Discharge Diagnosis (1) Sepsis Priority: Secondary Status: Resolved Assessment and Plan: Resolved. Chronically elevated WBC secondary to CMML, improving. Pt has UTI and has been treated with IV and now po antibiotics She remains afebrile, pulse near 90, BP is stable and WNL. Lactic was WNL, negative blood cultures x 2. Qualifiers: Sepsis type: sepsis due to unspecified organism Qualified Code(s): A41.9 - Sepsis, unspecified organism (2) HTN (hypertension) Priority: Secondary Status: Chronic Assessment and Plan: Chronic. Continue home medications. Well controlled. Qualifiers: Hypertension type: essential hypertension Qualified Code(s): I10 - Essential (primary) hypertension (3) Hyperlipemia Priority: Secondary Status: Acute Assessment and Plan: Chronic. Continue Lipitor. Qualifiers: Hyperlipidemia type: pure hypercholesterolemia Qualified Code(s): E78.00 - Pure hypercholesterolemia, unspecified; E78.0 - Pure hypercholesterolemia (4) Chronic kidney disease, stage III (moderate) Priority: Secondary Status: Chronic Assessment and Plan: Renal function remains unchanged, stable. Serum creatinine 1.12; GFR 46. Continue to avoid nephrotoxins. Pt has been switched to po Levaquin, will receive q48 due to CKD (5) CMML (chronic myelomonocytic leukemia) Priority: Secondary Status: Chronic Assessment and Plan: Pt reports today that she does not get treatment for CMML and does not follow with cancer center. I did speak with Dr. Horton regarding her thrombocytopenia and anemia, which we feel are reactive to UTI and sepsis. Pt states that she does not wish to be seen by oncology and does not want to follow at the cancer center. Conservative management. Qualifiers: Leukemia Active/Remission status: in remission Qualified Code(s): C93.11 - Chronic myelomonocytic leukemia, in remission (6) Encephalopathy acute Priority: Secondary Status: Resolved Assessment and Plan: Resolved. Pt is back to baseline. (7) UTI (urinary tract infection) Priority: Secondary Status: Acute Assessment and Plan: Pansensitive E. coli. Levaquin 500mg po q 48 hrs due to renal function Pt is asymptomatic and has returned to her baseline mentation. Vitals and labs are stable. Qualifiers: Urinary tract infection type: site unspecified Hematuria presence: without hematuria Qualified Code(s): N39.0 - Urinary tract infection, site not specified (8) DVT prophylaxis Priority: Secondary Status: Acute Assessment and Plan: SCDs ordered. Hospital course: Ms. Ware is a 87 year old female with past medical history of renal insufficiency, hypertension, hyperlipidemia, CMML, gout, CKD stage III. She was admitted from home, where she lives with her , for generalized weakness and confusion. Onset several days prior to arrival. Patient has baseline dementia, seemed to increase over the days prior to admission. On admission, white count was 33, patient has history of CMML, so is chronically elevated. Patient was also treated for urinary tract infection and sepsis. She was given IV fluid boluses for hypotension and Rocephin IV for urinary tract infection. Patient was found to be tachycardic with SVT noted on EKG. She has been given metoprolol XL 25 mg by mouth daily which has controlled her rate. EKG shows PACs. I did speak with cardiology regarding treatment of this , no consultation was necessary. She was evaluated by physical therapy who recommended home health, initially patient was resistant, but today her daughter insisted that she have home health, referral has been completed. I did speak with hematology oncology television announcer regarding thrombocytopenia and anemia , lupus suspect that this is is reactive in relation to sepsis and urinary tract infection. Patient's vitals and labs have free turned within normal limits other than platelets and hemoglobin. Patient has chronic kidney disease and renal function appears to be back to baseline. She is afebrile and rate controlled with her beta grace. Patient will be sent home with prescription for Levaquin 500 mg every 48 hours and will need to follow up with Dr. Manriquez. She is safe and appropriate for discharge. Discharge discussed with: family, nurse - Time Spent with Patient Total time spent providing and/or coordinating discharge services: Less than 30 minutes - Discharge Medications Prescriptions: levoFLOXacin [Levaquin] 500 mg PO Q48H #4 tablet Metoprolol XL (24 HR) Succ [Toprol Xl] 25 mg PO DAILY #30 tab.er.24h Home Medications: Albuterol Sulfate [Proair Respiclick] 2 puff IH Q4H PRN 09/05/15 [History] Atorvastatin [Lipitor] 40 mg PO HS 09/05/15 [History] HYDROcodone/Acet 7.5/325 mg [[place] 7.5-325 mg] 1 tab PO Q6H PRN 09/05/15 [ History] Budesonide/Formoterol 160/4.5 [Symbicort 160/4.5] 2 puff IH BIDR 03/11/18 [ History] Ferrous Sulfate [Iron] 325 mg PO DAILY 03/11/18 [History] Gabapentin [Neurontin] 100 mg PO BID 03/11/18 [History] Potassium Chloride 40 meq PO DAILY 03/11/18 [History] amLODIPine [Norvasc] 5 mg PO BID 03/11/18 [History] Metoprolol XL (24 HR) Succ [Toprol Xl] 25 mg PO DAILY #30 tab.er.24h 03/15/18 [ Rx] levoFLOXacin [Levaquin] 500 mg PO Q48H #4 tablet 03/15/18 [Rx] Allergies/Adverse Reactions: 3 Allergy/AdvReac Type Severity Reaction Status Date / Time Penicillins Allergy Hives Verified 03/11/18 20:00 Date of admission: 03/11/18 21:44 Primary care physician: Jose Manriquez Jr, MD Consults: 03/12/18 10:21 Consult to Cardiology [CONS] Routine Comment: Consulting Provider: Cardiology Jocelyn Reason for Consult: New onset a-fib vs a-flutter. Time Notified: 10:22 Call Completed: Yes 03/12/18 14:11 Consult to Occupational Therapy [CONS] Routine Comment: Evaluate, develop and implement POC Reason for Consult: D/C PLANNING. POSSIBLE REHAB PLACEMENT Does patient have active BEDREST order?: No Is patient medically & hemodynamically stable?: Yes Consult to Physical Therapy [CONS] Routine Comment: Evaluate, develop and implement POC Reason for Consult: D/C PLANNING. POSSIBLE REHAB Does patient have active BEDREST order?: No Is patient medically & hemodynamically stable?: Yes Discharging clinician: Ayleen Zamudio Anticipated date of discharge: 03/15/18 - Constitutional Vitals: Temp Pulse Resp BP Pulse Ox 97.9 F 88 17 107/62 94 03/15/18 10:46 03/15/18 10:46 03/15/18 10:46 03/15/18 10:46 03/15/18 10:46 General appearance: Present: cooperative, A&O X 2, pleasant, no acute distress. Absent: answers questions appropriately - Head Head exam: Present: atraumatic, normal inspection, normocephalic - Eye Eye exam: Present: normal appearance, conjuntiva pink, sclera anicteric - Neck Neck exam general surgery: Present: normal inspection, supple, trachea midline. Absent: lymphadenopathy, tenderness - Respiratory Respiratory exam: Present: CTAB. Absent: accessory muscle use, rales, rhonchi, wheezes - Cardiovascular Cardiovascular exam: Present: RRR, +S1, +S2. Absent: diastolic murmur, gallop, rubs, systolic murmur - GI/Abdominal GI/Abdominal exam: Present: normal bowel sounds, soft. Absent: distended, hepatomegaly, tenderness - Extremities Exam Extremities exam: Present: normal capillary refill, normal inspection, warm, radial pulses palpable and symmetrical. Absent: calf tenderness, cyanotic, pedal edema, tenderness - Neurological Exam Neurological exam: Present: alert, oriented X3, no focal deficits. Absent: facial droop, speech deficit - Skin Skin exam: Present: dry, intact, normal color, warm. Absent: rash - Patient Status Disposition: Home, Self-Care Condition: Good - Discharge Instructions Follow Up With: Jose Manriquez Jr, MD [Primary Care Provider] - Additional Instructions: Please follow up with your family doctor in the next 5-7 days for a recheck. If you start feeling badly again, return to the ER. If you change your mind and would like to have home health, call your doctor and he will be able to help get home health. Take your antibiotic every other day until they are gone. Take your other medications as directed Return to your normal activities and diet as tolerated. - Diet and Activity Activity: increase activity as tolerated Diet: advance to your usual diet
--- NOTE | 2018-03-15 12:00 | Physician Discharge Referral ---
Home Health/Hosp Referral Info Transfer to: Home Health Provider in Charge Post Discharge: PCP - Diagnosis (1) Sepsis Priority: Secondary Status: Resolved (2) HTN (hypertension) Priority: Secondary Status: Chronic (3) Hyperlipemia Priority: Secondary Status: Acute (4) Chronic kidney disease, stage III (moderate) Priority: Secondary Status: Chronic (5) CMML (chronic myelomonocytic leukemia) Priority: Secondary Status: Chronic (6) Encephalopathy acute Priority: Secondary Status: Resolved (7) UTI (urinary tract infection) Priority: Primary Status: Acute (8) DVT prophylaxis Priority: Secondary Status: Acute - Respiratory Orders Smoking Cessation: Smoking cessation has been advised. For more information, call the [place] Tobacco Quit Line at 0-960-VYBT-NOW. - Diet/Nutrition Diet/Nutrition Orders: Regular - Activity Activity Orders: Up ad tricia - Services Needed Following services are medically necessary services: Nursing, Home Health Aide, Physical Therapy, Occupational Therapy - Transfer Medications Prescriptions: levoFLOXacin [Levaquin] 500 mg PO Q48H #4 tablet Metoprolol XL (24 HR) Succ [Toprol Xl] 25 mg PO DAILY #30 tab.er.24h Home Medications: Albuterol Sulfate [Proair Respiclick] 2 puff IH Q4H PRN 09/05/15 [History] Atorvastatin [Lipitor] 40 mg PO HS 09/05/15 [History] HYDROcodone/Acet 7.5/325 mg [[place] 7.5-325 mg] 1 tab PO Q6H PRN 09/05/15 [ History] Budesonide/Formoterol 160/4.5 [Symbicort 160/4.5] 2 puff IH BIDR 03/11/18 [ History] Ferrous Sulfate [Iron] 325 mg PO DAILY 03/11/18 [History] Gabapentin [Neurontin] 100 mg PO BID 03/11/18 [History] Potassium Chloride 40 meq PO DAILY 03/11/18 [History] amLODIPine [Norvasc] 5 mg PO BID 03/11/18 [History] Metoprolol XL (24 HR) Succ [Toprol Xl] 25 mg PO DAILY #30 tab.er.24h 03/15/18 [ Rx] levoFLOXacin [Levaquin] 500 mg PO Q48H #4 tablet 03/15/18 [Rx] Allergies/Adverse Reactions: 3 Allergy/AdvReac Type Severity Reaction Status Date / Time Penicillins Allergy Hives Verified 03/11/18 20:00 Certification: Further, I certify that my clinical findings support that this patient is homebound (i.e. absences from home require considerable and taxing effort and are for medical reasons or congregation services or infrequently or short duration when for other reasons) because: Homebound Reason: Patient requires assistance of a person or device to safely leave home, Leaving home requires considerable and taxing effort due to condition, Altered mental status requiring supervision when leaving home Attestation: My signature below is to certify that this patient is under my care and that I, or nurse practitioner, or a physician's malt specifications control assistant working with me, has a face-to -face encounter with this patient.
[2018-03-16] MEDS ORDERED: Metoprolol XL (24 HR) Succ 25 MG TAB.ER.24H PO SCH (09:00)
--- NOTE | 2018-03-16 11:27 | Electrocardiograph Report ---
[place] [id number] Test Date: 2018-03-12 Pat Name: Reena Ware Department: [id number] Room: 3B14 Gender: F Curriculum Advisory Teacher: : [id number] Requested By: Ayleen Zamudio Order Number: [id number] Reading MD: Kg Feliciano Measurements Intervals [place] Rate: 165 P: SC: 0 QRS: -42 QRSD: 85 T: 58 QT: 274 QTc: 365 Interpretive Statements SUPRAENTRICULAR TACHYCARDIA WITH CONVERSION TO SINUS RHYTHM Electronically Signed On 03-16-2018 11:25:46 EDT by Kg Feliciano
== END 2018-03-15 12:52 | disposition home or self-care (01) ==
LOC: EMEROO 17:39 → 3BNU 17:39
PROVIDERS: ADMIT Internal Medicine; ATTEND Internal Medicine

== ENCOUNTER 2018-09-12 13:54 | Observation (INO) ==
--- NOTE | 2018-09-12 14:09 | Emergency Department Note ---
Disposition Clinical Impression: Urinary tract infection Qualifiers: Urinary tract infection type: acute pyelonephritis Qualified Code(s): N10 - Acute pyelonephritis Altered mental status Qualifiers: Altered mental status type: disorientation Qualified Code(s): R41.0 - Disorientation, unspecified Disposition: Admitted As Inpatient Condition: Fair Referrals: Jose Manriquez Jr, MD [Primary Care Provider] - Forms: ED Satisfaction Letter Time of Disposition: 18:29 General Adult HPI - General Chief complaint: ED Weakness Stated complaint: weakness Time Seen by Provider: 09/12/18 14:05 Source: family Mode of arrival: EMS Limitations: other (dementia) - History of Present Illness HPI Narrative: This is an 88-year-old female brought in by EMS because of weakness. Her family states that she has been too weak to get up and walk for the last 48 hours. She had a fall a few weeks ago after which she had a right hip x-ray and a right femur x-ray that showed no evidence of fractures, and had improved. 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 - Related Data Home Medications Medication Instructions Recorded Confirmed Albuterol Sulfate [Proair 2 puff IH Q4H PRN 09/05/15 03/11/18 Respiclick] Atorvastatin [Lipitor] 40 mg PO HS 09/05/15 03/11/18 HYDROcodone/Acet 7.5/325 mg [[place] 1 tab PO Q6H PRN 09/05/15 03/11/18 7.5-325 mg] Budesonide/Formoterol 160/4.5 2 puff IH BIDR 03/11/18 03/11/18 [Symbicort 160/4.5] Ferrous Sulfate [Iron] 325 mg PO DAILY 03/11/18 03/11/18 Gabapentin [Neurontin] 100 mg PO BID 03/11/18 03/11/18 Potassium Chloride 40 meq PO DAILY 03/11/18 03/11/18 amLODIPine [Norvasc] 5 mg PO BID 03/11/18 03/11/18 Previous Rx's Medication Instructions Recorded Metoprolol XL (24 HR) Succ [Toprol 25 mg PO DAILY #30 tab.er.24h 03/15/18 Xl] levoFLOXacin [Levaquin] 500 mg PO Q48H #4 tablet 03/15/18 Allergies Allergy/AdvReac Type Severity Reaction Status Date / Time Penicillins Allergy Hives Verified 03/11/18 20:00 All systems ED: reviewed and negative except as stated. Constitutional: Reports: weakness Gastrointestinal: Reports: abdominal pain (Suprapubic pain) Past Medical History - Past Medical History Medical history: Reports: cancer, dementia, hyperlipidemia, hypertension, other Surgical history: Reports: orthopedic, other Psychiatric history: Reports: no psych history - Social History Smoking Status: Never smoker Smokeless Tobacco Status: No Alcohol use: Reports: none Drug use: Reports: none Physical Exam - General Limitations: other (dementia) General appearance: alert, in no apparent distress - Head Head exam: atraumatic, normocephalic, normal inspection - Eye Eye exam: Present: normal appearance, PERRL, EOMI - Chest Chest inspection: Present: normal inspection, symmetric chest wall rise - Respiratory Respiratory exam: Present: normal lung sounds bilaterally - Cardiovascular Cardiovascular exam: Present: regular rate, normal rhythm, systolic murmur - Abdominal Exam Abdominal exam: Present: soft, tenderness. Absent: distention, guarding, rebound, rigidity Abdominal tenderness: Present: suprapubic, mild - Extremities Exam Extremities exam: Present: normal inspection, full ROM, tenderness (There is minimal tenderness at the right greater trochanter). Absent: pedal edema - Back Exam Back exam: Absent: CVA tenderness (R), CVA tenderness (L) - Neurological Exam Neurological exam: Present: alert - Psychiatric Psychiatric exam: Present: normal affect, normal mood - Skin Skin exam: Present: warm, dry, other (Skin has a jaundiced appearance) Course Vital Signs Temperature 99.2 F 09/12/18 14:03 Pulse Rate 102 09/12/18 14:03 Respiratory Rate 15 09/12/18 14:03 Blood Pressure 111/67 09/12/18 14:03 O2 Sat by Pulse Oximetry 95 09/12/18 14:03 Temperature 99.2 F 09/12/18 14:03 Pulse Rate 102 09/12/18 14:03 Respiratory Rate 15 09/12/18 14:03 Blood Pressure 111/67 09/12/18 14:03 O2 Sat by Pulse Oximetry 95 09/12/18 14:03 Oxygen Delivery Oxygen Delivery Room Air Medical Decision Making - MDM Narrative Medical decision making narrative: This is an 88-year-old female with evaluation consistent with a urinary tract infection causing altered mental status. Ceftriaxone was given for microbial coverage I discussed her case with the on-call hospitalist, who accepted her for admission - Lab Data Lab results reviewed: Yes I reviewed the patient's lab results. Lab results narrative: CBC shows leukocytosis of 39.1 with a preponderance of neutrophils, anemia at 11.0 and 34.5, platelets were low at 82 BMP showed hyponatremia at 130, creatinine elevated at 1.29 Troponin was low Lactic acid was elevated at 2.8 UA showed bacteria and too many to count white cells Result diagrams: 09/12/18 14:28 09/12/18 14:28 Lab Results 09/12/18 09/12/18 09/12/18 Range/Units 14:19 14:28 14:28 WBC 39.1 H* (4.3-11.1) K/mcL RBC 4.34 (3.82-4.97) M/mcL Hgb 11.0 L (11.5-15.4) g/dL Hct 34.5 L (35.3-44.9) % MCV 79.5 L (83.0-100.0) fL MCH 25.3 L (28.0-33.3) pg MCHC 31.9 (31.6-35.5) g/dL RDW 15.5 H (11.5-14.5) % Plt Count 82 L (140-400) K/mcL MPV 12.0 (9.4-12.4) fL Immature Gran % Test Not Performed Seg Neutrophils % 80.0 % Lymphocytes % 10.0 % Monocytes % 10.0 % Eosinophils % Test Not Performed Basophils % Test Not Performed Neutrophils # 31.3 H (1.6-8.9) K/mcL Lymphocytes # 3.9 (0.6-4.6) K/mcL Monocytes # 3.9 H (0.0-1.3) K/mcL Eosinophils # Test Not Performed Basophils # Test Not Performed Platelet Estimate Slight Decrease L (Normal) Anisocytosis 1+ A (Not Present) Sodium 130 L (136-145) mEq/L Potassium 4.3 (3.5-5.1) mEq/L Chloride 97 L (98-107) mEq/L Carbon Dioxide 22 L (23-29) mEq/L BUN 17 (8-23) mg/dL Creatinine 1.29 H (0.60-1.20) mg/dL Est GFR ( Amer) 47 L (> 60) Est GFR (Non-Af Amer) 39 L (> 60) BUN/Creatinine Ratio 13 (6-26) Glucose 255 H (70-105) mg/dL POC Glucose 302 H (70-99) mg/dL Calculated Osmolality 280 (280-300) Lactic Acid (0.5-2.2) mmol/L Calcium 9.6 (8.6-10.3) mg/dL Total Bilirubin 0.9 (0.3-1.0) mg/dL AST 27 (13-39) Units/L ALT 27 (7-52) Units/L Alkaline Phosphatase 82 (34-104) Units/L Troponin I < 0.03 (< 0.04) ng/mL Serum Total Protein 7.1 (6.4-8.9) g/dL Albumin 3.5 (3.5-5.7) g/dL Globulin 3.6 H (2.4-3.5) g/dL Albumin/Globulin Ratio 1.0 L (1.1-2.2) Urine Color (Yellow) Urine Clarity (Clear) Urine pH (5.0-8.0) pH Units Ur Specific [place] (1.010-1.025) Urine Protein (Neg-Trace) mg/dL Urine Glucose (UA) (Normal) mg/dL Urine Ketones (Negative) mg/dL Urine Blood (Negative) Urine Nitrite (Negative) Urine Bilirubin (Negative) Urine Urobilinogen (Normal) mg/dL Ur Leukocyte Esterase (Negative) Urine Microscopic RBC (0-3) per hpf Urine Microscopic WBC (0-3) per hpf Ur Squamous Epith Cells (None-Few) per lpf Ur Transition Epith Cell (None-Few) per hpf Ur Renal Epithelial Cell (None-Few) per hpf Urine Bacteria (None-Few) per hpf Hyaline Casts (None-Few) per lpf Ur Culture Indicated? (NO) Specimen Rejected 09/12/18 09/12/18 09/12/18 Range/Units 14:28 15:16 15:57 WBC (4.3-11.1) K/mcL RBC (3.82-4.97) M/mcL Hgb (11.5-15.4) g/dL Hct (35.3-44.9) % MCV (83.0-100.0) fL MCH (28.0-33.3) pg MCHC (31.6-35.5) g/dL RDW (11.5-14.5) % Plt Count (140-400) K/mcL MPV (9.4-12.4) fL Immature Gran % Seg Neutrophils % % Lymphocytes % % Monocytes % % Eosinophils % Basophils % Neutrophils # (1.6-8.9) K/mcL Lymphocytes # (0.6-4.6) K/mcL Monocytes # (0.0-1.3) K/mcL Eosinophils # Basophils # Platelet Estimate (Normal) Anisocytosis (Not Present) Sodium (136-145) mEq/L Potassium (3.5-5.1) mEq/L Chloride (98-107) mEq/L Carbon Dioxide (23-29) mEq/L BUN (8-23) mg/dL Creatinine (0.60-1.20) mg/dL Est GFR ( Amer) (> 60) Est GFR (Non-Af Amer) (> 60) BUN/Creatinine Ratio (6-26) Glucose (70-105) mg/dL POC Glucose (70-99) mg/dL Calculated Osmolality (280-300) Lactic Acid 2.8 H (0.5-2.2) mmol/L Calcium (8.6-10.3) mg/dL Total Bilirubin (0.3-1.0) mg/dL AST (13-39) Units/L ALT (7-52) Units/L Alkaline Phosphatase (34-104) Units/L Troponin I (< 0.04) ng/mL Serum Total Protein (6.4-8.9) g/dL Albumin (3.5-5.7) g/dL Globulin (2.4-3.5) g/dL Albumin/Globulin Ratio (1.1-2.2) Urine Color Yellow (Yellow) Urine Clarity Cloudy A (Clear) Urine pH 7.0 (5.0-8.0) pH Units Ur Specific [place] < 1.005 L (1.010-1.025) Urine Protein Trace (Neg-Trace) mg/dL Urine Glucose (UA) Normal (Normal) mg/dL Urine Ketones Negative (Negative) mg/dL Urine Blood Moderate H (Negative) Urine Nitrite Negative (Negative) Urine Bilirubin Negative (Negative) Urine Urobilinogen Normal (Normal) mg/dL Ur Leukocyte Esterase Large H (Negative) Urine Microscopic RBC 3-5 H (0-3) per hpf Urine Microscopic WBC TNTC H (0-3) per hpf Ur Squamous Epith Cells None Seen (None-Few) per lpf Ur Transition Epith Cell Few (None-Few) per hpf Ur Renal Epithelial Cell Few (None-Few) per hpf Urine Bacteria Moderate H (None-Few) per hpf Hyaline Casts Moderate H (None-Few) per lpf Ur Culture Indicated? YES A (NO) Specimen Rejected Volume - Radiology Data Radiology results reviewed: Yes I reviewed the patient's radiology results. Chest x-ray was unremarkable CT brain showed no abnormality - EKG Data EKG #1 EKG attestation: Yes I reviewed and interpreted this EKG. EKG results narrative: ECG shows sinus tachycardia, 102 bpm, normal intervals, normal axis, normal ST and T waves Critical Care Time Critical Care Time: No
[2018-09-12 14:46] LABS: Hematocrit 34.5 % (35.3-44.9); Mean Corpuscular HGB Conc 31.9 g/dL (31.6-35.5); Mean Corpuscular Hemoglobin 25.3 pg (28.0-33.3); Mean Corpuscular Volume 79.5 fL (83.0-100.0); Red Blood Count 4.34 M/mcL (3.82-4.97); Red Cell Distribution Width 15.5 % (11.5-14.5)
[2018-09-12 14:50] LABS: Platelet Count 82 K/mcL (140-400)
[2018-09-12 15:07] LABS: Alanine Aminotransferase 27 Units/L (7-52); Albumin 3.5 g/dL (3.5-5.7); Alkaline Phosphatase 82 Units/L (34-104); Aspartate Amino Transferase 27 Units/L (13-39); BUN/Creatinine Ratio 13 (6-26); Bilirubin,Total 0.9 mg/dL (0.3-1.0); Blood Urea Nitrogen 17 mg/dL (8-23); Calcium 9.6 mg/dL (8.6-10.3); Carbon Dioxide 22 mEq/L (23-29); Chloride 97 mEq/L (98-107); Globulin 3.6 g/dL (2.4-3.5); Glucose 255 mg/dL (70-105); Osmolality,Calculated 280 (280-300); Potassium 4.3 mEq/L (3.5-5.1); Sodium 130 mEq/L (136-145); Total Protein 7.1 g/dL (6.4-8.9); eGFR For Non-African Americans 39 (> 60)
[2018-09-12 15:08] LABS: Troponin I < 0.03 ng/mL (< 0.04)
[2018-09-12 15:24] LABS: Anisocytosis 1+ (Not Present); Lymphocytes # 3.9 K/mcL (0.6-4.6); Monocytes # 3.9 K/mcL (0.0-1.3); Neutrophils # 31.3 K/mcL (1.6-8.9); Platelet Estimate Slight Decrease (Normal)
[2018-09-12] MEDS ORDERED: cefTRIAXone 1,000 MG in Water for inj. (sterile) 20 ML 10 ML IVP ONE (15:36)
[2018-09-12 16:16] LABS: Bilirubin,Urine Negative (Negative); Blood,Urine Moderate (Negative); Clarity,Urine Cloudy (Clear); Color,Urine Yellow (Yellow); Glucose,Urine (UA) Normal (Normal); Ketones,Urine Negative (Negative); Leukocyte Esterase,Urine Large (Negative); Nitrite,Urine Negative (Negative); Protein,Urine Trace mg/dL (Neg-Trace); Specific Gravity,Urine < 1.005 (1.010-1.025); Urobilinogen,Urine Normal (Normal)
[2018-09-12 16:18] LABS: Hyaline Casts,Urine Moderate per lpf (None-Few); Squamous Epithelial Cell,Urine None Seen per lpf (None-Few); WBC,Urine TNTC per hpf (0-3)
[2018-09-12 16:34] LABS: Transitional Epi Cells,Urine Few per hpf (None-Few)
[2018-09-12 16:35] LABS: Bacteria,Urine Moderate per hpf (None-Few); Renal Epithelial Cells,Urine Few per hpf (None-Few)
[2018-09-12] MEDS ORDERED: Naloxone 0.4 MG/ML INJ IVP PRN ×2 (19:34→20:19)
--- NOTE | 2018-09-12 19:41 | Internal Med History&Physical ---
Addendum entered and electronically signed by Farrah George MD 09/13/18 08:22: Patient seen and examined on 09/12/2018 Original Note: <Ata Gloria - Last Filed: 09/13/18 02:36> Date of Encounter: 09/13/18 Time of Encounter: 19:41 Internal Medicine - H&P: HPI Chief complaint: Weakness Admitted From: Home Plans for Post Hospital Care: Home History of present illness: Ms. Ware is a 88 year old female with PMHx significant for Chronic Myeloid Leukemia, Dementia, HTN, HLD who presents to the ED due to lower extremity weakness over the past 48 hours. Per patient's daughter, pt has not been able to get up and walk as she normally does for the past 2 days. States that she is complaining of right hip pain, and when she walks, seems as if she is dragging her right foot. Pt has hx of unwitnessed fall 2 weeks ago after which she began complaining of right hip pain - Right Hip and Right Femur XR were negative. Daughter also notes that she believes patient was able to walk to the bathroom three times last night without difficulty, but did not see her do so. Also currently associated with lethargy, fatigue, malaise, dysuria. Pt has been feeling ill for the past week, and was diagnosed with a UTI by her PCP for which she finished a course of Cipro as of last night. Pt lives at home with (who is also currently admitted to the hospital), and is usually able to walk by herself with assistance of a walker. Has two home health aides, and two daughters who check in on her periodically. Currently only complaining of right hip pain, and denies fevers/chills, headache, vision changes, chest pain, SOB, abdominal pain, nausea/ vomiting/ diarrhea. In the ED, patient was initially slightly tachycardic (HR = 102), but otherwise stable. Pt resting comfortably in bed in no acute distress. Workup included: CBC: WBC = 39.1 (w/ neutrophil predominance = 31.3); Hb/Hct = 11.0/34.5; Plts = 82 BMP: Na = 130; BUN/Cr = 17/1.29 (baseline CKD stage III) Lactic Acid = initially elevated 2.8 --> 1.4 after 4 hours Trop: Negative CXR: No acute cardiopulmonary disease CT Head: No acute intracranial abnormality EKG: Sinus Tachy at HR = 102; normal intervals, normal axis, no acute ST changes UA: Cloudy urine with moderate blood, large leuk est, WBCs TNTC, and moderate urine bacteria Pt has history of UTIs in the past. Previous UCxs grew Staph Epidermidis (08/16/18) and E. Coli (08/03/18, 03/11/18). Most recent Urine Cx (09/08/18) had no growth. Pt was given IVF, Ceftriaxone in the ED to treat suspected UTI. Urine Cx pending. Plan to admit patient due to weakness, lethargy, and UTI. Past Med Surg Social Fam HX - Past Medical History Source: old records reviewed, obtained from family Medical history: cancer, dementia, hyperlipidemia, hypertension, other Additional medical history: leukemia. gout Psychiatric history: no psych history - Past Surgical History Surgical History: orthopedic, other Additional surgical history: right mastectomy - Social History Smoking Status: Never smoker Smokeless Tobacco Status: No Alcohol use: none Drug use: none - Family History Sister Hx Family Cancer: Yes (colon) Father Adopted: No Living Status: Hx Family Neurologic Disorders: Yes (aneryism) Internal Medicine - H&P: Meds Albuterol Sulfate [Proair Respiclick] 2 puff IH Q4H PRN 09/05/15 [History] Atorvastatin [Lipitor] 40 mg PO HS 09/05/15 [History] HYDROcodone/Acet 7.5/325 mg [[place] 7.5-325 mg] 1 tab PO Q6H PRN 09/05/15 [History] Budesonide/Formoterol 160/4.5 [Symbicort 160/4.5] 2 puff IH BIDR 03/11/18 [History] Ferrous Sulfate [Iron] 325 mg PO DAILY 03/11/18 [History] Gabapentin [Neurontin] 100 mg PO BID 03/11/18 [History] Potassium Chloride 40 meq PO DAILY 03/11/18 [History] amLODIPine [Norvasc] 5 mg PO BID 03/11/18 [History] Metoprolol XL (24 HR) Succ [Toprol Xl] 25 mg PO DAILY #30 tab.er.24h 03/15/18 [Rx] levoFLOXacin [Levaquin] 500 mg PO Q48H #4 tablet 03/15/18 [Rx] Allergy/AdvReac Type Severity Reaction Status Date / Time Penicillins Allergy Hives Verified 03/11/18 20:00 All Systems PM: A 10-system review of systems was performed and is negative for pertinent findings except as documented above in the HPI. - Constitutional Constitutional: fatigue, lethargy, malaise, weakness, no chills, no fever(s), no falls - EENT Eyes: no blurry vision, no change in vision Nose, mouth and throat: no facial pain, no neck pain - Cardiovascular Cardiovascular ROS IM: no chest pain, no dyspnea, no lightheadedness, no palpitations - Respiratory Respiratory: no cough, no wheezing - Gastrointestinal Gastrointestinal: no abdominal pain, no diarrhea, no nausea, no vomiting - Genitourinary Genitourinary: no dysuria - Musculoskeletal Musculoskeletal ROS IM: other Additional comments: Right Hip Pain - Integumentary Integumentary IM: no rash - Neurological Neurological ROS: abnormal gait, confusion, weakness, no headache(s) - Constitutional Vitals: Temp Pulse Resp BP Pulse Ox 99.2 F 89 16 110/58 93 09/12/18 14:03 09/12/18 18:45 09/12/18 18:45 09/12/18 18:45 09/12/18 18:45 General appearance: Present: A&O X 2, pleasant, no acute distress, answers questions appropriately Exam: GEN: AOx2; NAD; resting comfortably in bed with daughters at bedside HEENT: Atraumatic, normocephalic; EOMI; PERRLA; Mucous membranes moist; wears dentures CARDIO: RRR; no murmurs, rubs, gallops RESP: CTAB, no wheezes, rales, rhonchi ABD: Soft, non-tender, non-distended; bowel sounds present; no guarding, rebound tenderness NEURO: CN 2 - 12 intact; 5/5 strength upper and lower extremities bilaterally; no focal deficits EXT: No lower extremity edema; no rashes noted Internal Med - H&P Results - Labs CBC & Chem 7: 09/12/18 14:28 09/12/18 14:28 Labs: Short CBC 09/12/18 Range/Units 14:28 WBC 39.1 H* (4.3-11.1) K/mcL Hgb 11.0 L (11.5-15.4) g/dL Hct 34.5 L (35.3-44.9) % Plt Count 82 L (140-400) K/mcL Neutrophils # 31.3 H (1.6-8.9) K/mcL BMP 09/12/18 14:28 Sodium 130 L Potassium 4.3 Chloride 97 L Carbon Dioxide 22 L BUN 17 Creatinine 1.29 H Glucose 255 H Calcium 9.6 Cardiac Enzymes 09/12/18 Range/Units 14:28 Troponin I < 0.03 (< 0.04) ng/mL Liver Function 09/12/18 Range/Units 14:28 Total Bilirubin 0.9 (0.3-1.0) mg/dL AST 27 (13-39) Units/L ALT 27 (7-52) Units/L Alkaline Phosphatase 82 (34-104) Units/L Albumin 3.5 (3.5-5.7) g/dL Urine 09/12/18 Range/Units 15:57 Urine Color Yellow (Yellow) Urine Clarity Cloudy A (Clear) Urine pH 7.0 (5.0-8.0) pH Units Ur Specific [place] < 1.005 L (1.010-1.025) Urine Protein Trace (Neg-Trace) mg/dL Urine Glucose (UA) Normal (Normal) mg/dL - Impressions ITS Impressions Chest X-Ray 09/12/18 14:05 IMPRESSION: Stable chest. No acute cardiopulmonary process. D/ / Sonia Giordano MD / Sonia Giordano MD Interpreting Provider: Sonia Giordano MD Head CT 09/12/18 15:14 IMPRESSION: 1. No acute intracranial abnormality. D/ / Burak Rodriguez MD / Burak Rodriguez MD Interpreting Provider: Burak Rodriguez MD - Assessment and plan (1) UTI (urinary tract infection) Current Visit: Yes Status: Acute Assessment and plan: Ms. Ware is a 88 year old female with PMHx significant for Chronic Myeloid Leukemia, Dementia, HTN, HLD who presents to the ED due to lower extremity weakness over the past 48 hours. Associated with lethargy, fatigue, malaise, dysuria Hx of multiple UTIs in the past Recently treated for UTI by PCP with 5d course of Cipro UA: Cloudy urine with moderate blood, large leuk est, WBCs TNTC, and moderate urine bacteria Pt has history of UTIs in the past. Previous UCxs grew Staph Epidermidis (08/16/18) and E. Coli (08/03/18, 03/11/18). Most recent Urine Cx (09/08/18) had no growth. Staph Epidermidis culture resistant to fluoroquinolones and Bactrim; E. Coli cultures were pak-sensitive Pt was given IVF and ceftriaxone in the ED PLAN: Cont IVF Monitor Vitals Qualifiers: Urinary tract infection type: acute cystitis Hematuria presence: with hematuria Qualified Code(s): N30.01 - Acute cystitis with hematuria (2) Weakness Current Visit: Yes Status: Acute Assessment and plan: Per daughter, pt has been unable to walk per usual for the past 2 days States that she feel weak bilaterally, and has been complaining of Right Hip pain Pt has hx of unwitnessed fall 2 weeks ago after which she began complaining of right hip pain - Right Hip and Right Femur XR were negative Daughter also notes that she believes patient was able to walk to the bathroom three times last night without difficulty, but did not see her do so Denies slurred speech, facial assymetry, unilateral weakness; no hx of CVA Previous right hip, right femur XR = negative CT Head: No acute intracranial abnormality EKG: Sinus Tachy at HR = 102; normal intervals, normal axis, no acute ST changes PLAN: Possibly secondary to deconditioning PT/OT while admitted (3) CMML (chronic myelomonocytic leukemia) Current Visit: No Status: Chronic Assessment and plan: Hx CML Currently followed with Heme/Onc WBC today = 39.1 Hb/Hct = 11.0 Plts = 82 PLAN: Follow up with heme-onc outpatient currently stable CBC in the AM Qualifiers: Leukemia Active/Remission status: in remission Qualified Code(s): C93.11 - Chronic myelomonocytic leukemia, in remission (4) Chronic kidney disease, stage III (moderate) Current Visit: No Status: Chronic Assessment and plan: BUN/Cr = 17/1.29 GFR = 39 Baseline CKD Stage III PLAN: Stable Cont IVF Monitor Vitals Avoid nephrotoxic meds BMP in the AM (5) Hyperlipemia Current Visit: No Status: Acute Assessment and plan: Chronic PLAN: Cont home med - atorvastatin Qualifiers: Hyperlipidemia type: pure hypercholesterolemia Qualified Code(s): E78.00 - Pure hypercholesterolemia, unspecified; E78.0 - Pure hypercholesterolemia (6) HTN (hypertension) Current Visit: No Status: Chronic Assessment and plan: Chronic PLAN: Cont home meds - amlodipine Qualifiers: Hypertension type: essential hypertension Qualified Code(s): I10 - Essential (primary) hypertension (7) DVT prophylaxis Current Visit: No Status: Acute Assessment and plan: Heparin SQ BID - Time Spent With Patient Total time spent is greater than 50% in coordination of care (as documented) at patient's floor/unit and/or counseling patient: less than 15 minutes <Farrah George - Last Filed: 09/13/18 08:13> Date of Encounter: 09/12/18 Internal Medicine - H&P: HPI History of present illness: Ms. Ware is a 88 year old female All Systems PM: A 10-system review of systems was performed and is negative for pertinent findings except as documented above in the HPI. - Constitutional Vitals: Temp Pulse Resp BP Pulse Ox 99.2 F 89 16 110/58 93 09/12/18 14:03 09/12/18 18:45 09/12/18 18:45 09/12/18 18:45 09/12/18 18:45 Internal Med - H&P Results - Labs CBC & Chem 7: 09/13/18 04:54 09/13/18 04:54 Labs: Short CBC 09/12/18 Range/Units 14:28 WBC 39.1 H* (4.3-11.1) K/mcL Hgb 11.0 L (11.5-15.4) g/dL Hct 34.5 L (35.3-44.9) % Plt Count 82 L (140-400) K/mcL Neutrophils # 31.3 H (1.6-8.9) K/mcL BMP 09/12/18 14:28 Sodium 130 L Potassium 4.3 Chloride 97 L Carbon Dioxide 22 L BUN 17 Creatinine 1.29 H Glucose 255 H Calcium 9.6 Cardiac Enzymes 09/12/18 Range/Units 14:28 Troponin I < 0.03 (< 0.04) ng/mL Liver Function 09/12/18 Range/Units 14:28 Total Bilirubin 0.9 (0.3-1.0) mg/dL AST 27 (13-39) Units/L ALT 27 (7-52) Units/L Alkaline Phosphatase 82 (34-104) Units/L Albumin 3.5 (3.5-5.7) g/dL Urine 09/12/18 Range/Units 15:57 Urine Color Yellow (Yellow) Urine Clarity Cloudy A (Clear) Urine pH 7.0 (5.0-8.0) pH Units Ur Specific [place] < 1.005 L (1.010-1.025) Urine Protein Trace (Neg-Trace) mg/dL Urine Glucose (UA) Normal (Normal) mg/dL - Impressions ITS Impressions Chest X-Ray 09/12/18 14:05 IMPRESSION: Stable chest. No acute cardiopulmonary process. D/ / Sonia Giordano MD / Sonia Giordano MD Interpreting Provider: Sonia Giordano MD Head CT 09/12/18 15:14 IMPRESSION: 1. No acute intracranial abnormality. D/ / Burak Rodriguez MD / Burak Rodriguez MD Interpreting Provider: Burak Rodriguez MD - Time Spent With Patient Total time spent is greater than 50% in coordination of care (as documented) at patient's floor/unit and/or counseling patient: - Attending Attestation Ms. Ware is a 87 year old female with a PMH of CMML which is being monitored, hypertension, chronic kidney disease 3, hyperlipidemia, chronic thromboyctopenia, gout, who presents with generalized malaise and weakness and intermittent confusion. At baseline the patient has some dementia as she is only alert to self and place. No reported fever. She had a similar presentation back in February of this year at which time she was treated for a urinary tract infection with resolution of her altered mental status. In the ED workup revealed WBC count of 35 which is higher than her last WBC. She was also noted to have anemia and thrombocytopenia which appears to be at baseline and likely secondary to underlying CMML. Workup in the ED showed possible UTI. CT head was unremarkable. Chest x-ray was unremarkable. The patient was given ceftriaxone. Denies fever, chills, headache, blurry vision, chest pain, shortness of breath, abdominal pain, diarrhea, constipation, numbness, or ting ling
[2018-09-12] MEDS ORDERED: 0.9 % Sodium Chloride 1,000 ML IVC SCH (19:45)
[2018-09-13] MEDS: Acetaminophen 325 MG TABLET PO PRN ×3 (04:22→20:04)
[2018-09-13] MEDS: *HR* Heparin 5,000 UNIT/ML VIAL SQ SCH ×2 (05:17→17:14)
[2018-09-13 06:01] LABS: Immature Granulocytes % 2.6 % (0-4)
[2018-09-13 06:02] LABS: Basophils # 0.1 K/mcL (0.0-0.2); Basophils % 0.2 %; Eosinophils % 0.1 %; Hematocrit 32.7 % (35.3-44.9); Hemoglobin 10.4 g/dL (11.5-15.4); Lymphocytes % 5.6 %; Mean Corpuscular HGB Conc 31.8 g/dL (31.6-35.5); Mean Corpuscular Hemoglobin 25.2 pg (28.0-33.3); Mean Corpuscular Volume 79.2 fL (83.0-100.0); Monocytes # 12.4 K/mcL (0.0-1.3); Red Blood Count 4.13 M/mcL (3.82-4.97); Red Cell Distribution Width 15.5 % (11.5-14.5); Segmented Neutrophils % 56.5 %
[2018-09-13 06:04] LABS: Neutrophils # 20.1 K/mcL (1.6-8.9); Platelet Count 72 K/mcL (140-400)
[2018-09-13 06:24] LABS: Platelet Estimate Decreased (Normal)
[2018-09-13 06:30] LABS: Calcium 9.5 mg/dL (8.6-10.3); Potassium 3.2 mEq/L (3.5-5.1)
[2018-09-13] MEDS: cefTRIAXone 1,000 MG in Water for inj. (sterile) 20 ML 10 ML IVP SCH (10:20)
[2018-09-13] MEDS ORDERED: Albuterol 2.5 MG/3 ML NEBULIZER IH PRN (11:30)
[2018-09-13] MEDS: predniSONE 10 MG TABLET PO SCH (12:18)
[2018-09-13] MEDS ORDERED: Potassium Chloride Elixir 20 MEQ/15 ML UDC PO ONE (13:08)
--- NOTE | 2018-09-13 13:12 | Internal Med Progress Note ---
Hospitalist Progress Note - Encounter Date of Encounter: 09/13/18 Time of Encounter: 09:00 - Subjective Interval History: Patient denies any pain. Awake alert, disoriented (patient said somebody told her she is in hospital but cannot tell which hospital, disoriented to time and people). Vitals are stable. - Exam Vitals: Temp Pulse Resp BP Pulse Ox 97.8 F 86 17 116/73 96 09/13/18 11:49 09/13/18 11:49 09/13/18 11:49 09/13/18 11:49 09/13/18 11:49 Exam: GEN: AAOx1; NAD; resting comfortably in bed HEENT: Atraumatic, normocephalic; EOMI; PERRLA; Mucous membranes moist; wears dentures CARDIO: RRR with multiple skipping beats ; no murmurs, rubs, gallops RESP: CTAB, no wheezes, rales, rhonchi ABD: Soft, non-tender, non-distended; bowel sounds present; no guarding, rebound tenderness NEURO: CN 2 - 12 intact; 5/5 strength upper and lower extremities bilaterally; no focal deficits EXT: No lower extremity edema; no rashes noted - Assessment and Plan (1) UTI (urinary tract infection) Current Visit: Yes Status: Acute Assessment and Plan: Patient has multiple UTI previously with usually weakness or altered mental status. UA shows UTI this time. - Cont Rocephin IV, follow-up urine culture (2) Weakness Current Visit: Yes Status: Acute Assessment and Plan: Most likely due to UTI and general deconditioning. - PTOT evaluation recommend ECF discharge - Continue PTOT when patient in hospital - Treat UTI as above (3) Confusion Current Visit: No Status: Acute Assessment and Plan: Patient has baseline dementia with acute infection. Continue treat UTI. Continue PTOT (4) DVT prophylaxis Current Visit: No Status: Acute (5) Leukocytosis Current Visit: No Status: Acute Assessment and Plan: Pt has baseline leukocytosis which is caused by CMML. Will closely monitor WBC level and patient will follow up with oncology as outpatient. (6) CMML (chronic myelomonocytic leukemia) Current Visit: No Status: Chronic Assessment and Plan: Management as above (7) Chronic kidney disease, stage III (moderate) Current Visit: No Status: Chronic Assessment and Plan: Slightly improved renal function after IV fluid. Continue closely monitor renal function, avoid nephrotoxic medications. (8) HTN (hypertension) Current Visit: No Status: Chronic Assessment and Plan: BP is not high. Will hold the home medications amlodipine. Patient has multiple PACs on cardiac monitoring. Will add low-dose metoprolol. Closely monitor BP. (9) Chronic steroid use Current Visit: Yes Status: Acute Assessment and Plan: Patient has prednisone 10-15 mg by mouth daily at home for at least several months per pharmacy check. Will continue at this point. Will give stress dose steroids if patient has severe infection or other major stress. Defer to PCP for further adjustment after discharge. DVT Prophylaxis: Heparin subcutaneously - Time Spent with Patient Total time spent is greater than 50% in coordination of care (as documented) at patient's floor/unit and/or counseling patient: 30 minutes 25 - 35 minutes Plan of Care Discussed with: family Internal Medicine: Result - Labs CBC & Chem 7: 09/13/18 04:54 09/13/18 04:54 Labs: Short CBC 09/12/18 09/13/18 Range/Units 14:28 04:54 WBC 39.1 H* 35.5 H* (4.3-11.1) K/mcL Hgb 11.0 L 10.4 L (11.5-15.4) g/dL Hct 34.5 L 32.7 L (35.3-44.9) % Plt Count 82 L 72 L (140-400) K/mcL Neutrophils # 31.3 H 20.1 H (1.6-8.9) K/mcL BMP 09/12/18 09/13/18 14:28 04:54 Sodium 130 L 137 Potassium 4.3 3.2 L D Chloride 97 L 103 Carbon Dioxide 22 L 24 BUN 17 14 Creatinine 1.29 H 1.12 Glucose 255 H 103 Calcium 9.6 9.5 Cardiac Enzymes 09/12/18 Range/Units 14:28 Troponin I < 0.03 (< 0.04) ng/mL Liver Function 09/12/18 Range/Units 14:28 Total Bilirubin 0.9 (0.3-1.0) mg/dL AST 27 (13-39) Units/L ALT 27 (7-52) Units/L Alkaline Phosphatase 82 (34-104) Units/L Albumin 3.5 (3.5-5.7) g/dL Urine 09/12/18 Range/Units 15:57 Urine Color Yellow (Yellow) Urine Clarity Cloudy A (Clear) Urine pH 7.0 (5.0-8.0) pH Units Ur Specific [place] < 1.005 L (1.010-1.025) Urine Protein Trace (Neg-Trace) mg/dL Urine Glucose (UA) Normal (Normal) mg/dL - Impressions Impressions Chest X-Ray 09/12/18 14:05 IMPRESSION: Stable chest. No acute cardiopulmonary process. D/ / Sonia Giordano MD / Sonia Giordano MD Interpreting Provider: Sonia Giordano MD Head CT 09/12/18 15:14 IMPRESSION: 1. No acute intracranial abnormality. D/ / Burak Rodriguez MD / Burak Rodriguez MD Interpreting Provider: Burak Rodriguez MD Consult Discharge Plan - Plan Referrals: Jose Manriquez Jr, MD [Primary Care Provider] - (1) UTI (urinary tract infection) Qualifiers: Urinary tract infection type: acute cystitis Hematuria presence: with hematuria Qualified Code(s): N30.01 - Acute cystitis with hematuria (5) Leukocytosis Qualifiers: Leukocytosis type: unspecified Qualified Code(s): D72.829 - Elevated white blood cell count, unspecified (6) CMML (chronic myelomonocytic leukemia) Qualifiers: Leukemia Active/Remission status: in remission Qualified Code(s): C93.11 - Ch ronic myelomonocytic leukemia, in remission (8) HTN (hypertension) Qualifiers: Hypertension type: essential hypertension Qualified Code(s): I10 - Essential (primary) hypertension
[2018-09-13] MEDS: Gabapentin 100 MG CAPSULE PO SCH (20:04)
[2018-09-13] MEDS: Budesonide/Formoterol 160/4.5 1 PUFF INH IH SCH (22:08)
[2018-09-14] MEDS: *HR* Heparin 5,000 UNIT/ML VIAL SQ SCH ×2 (05:45→17:04)
[2018-09-14 05:46] LABS: Hemoglobin 10.6 g/dL (11.5-15.4)
[2018-09-14 05:47] LABS: Hematocrit 33.2 % (35.3-44.9); Mean Corpuscular HGB Conc 31.9 g/dL (31.6-35.5); Mean Corpuscular Hemoglobin 25.1 pg (28.0-33.3); Mean Corpuscular Volume 78.5 fL (83.0-100.0); Mean Platelet Volume 12.3 fL (9.4-12.4); Platelet Count 100 K/mcL (140-400); Red Blood Count 4.23 M/mcL (3.82-4.97); Red Cell Distribution Width 15.5 % (11.5-14.5)
[2018-09-14 06:08] LABS: Calcium 9.6 mg/dL (8.6-10.3); Potassium 3.7 mEq/L (3.5-5.1)
[2018-09-14 06:35] LABS: Monocytes # 7.6 K/mcL (0.0-1.3); Neutrophils # 30.6 K/mcL (1.6-8.9); Platelet Estimate Slight Decrease (Normal)
[2018-09-14] MEDS: Gabapentin 100 MG CAPSULE PO SCH ×2 (08:51→21:06)
[2018-09-14] MEDS: Acetaminophen 325 MG TABLET PO PRN ×2 (08:52→17:04)
[2018-09-14] MEDS: predniSONE 10 MG TABLET PO SCH (08:52)
[2018-09-14] MEDS: cefTRIAXone 1,000 MG in Water for inj. (sterile) 20 ML 10 ML IVP SCH (08:52)
[2018-09-14] MEDS: Budesonide/Formoterol 160/4.5 1 PUFF INH IH SCH ×2 (10:36→22:51)
--- NOTE | 2018-09-14 11:57 | Electrocardiograph Report ---
[address] [place] [address] Test Date: 2018-09-12 Pat Name: Reena Ware Department: EXAM2 Room: 2A Gender: F [employer]: : 1930 Requested By: Partha Trevizo Order Number: [id number] Reading MD: Sinan Jacob Measurements Intervals [place] Rate: 102 P: 48 [place]: 129 QRS: -69 QRSD: 80 T: 49 QT: 313 QTc: 408 Interpretive Statements Multifocao atrial tachycardia Atrial premature complexes Probable left atrial enlargement Anterolateral infarct, old Electronically Signed On 09-14-2018 11:56:17 EST by Sinan Jacob
--- NOTE | 2018-09-14 12:59 | Internal Med Progress Note ---
Hospitalist Progress Note - Encounter Date of Encounter: 09/14/18 Time of Encounter: 12:56 - Subjective Interval History: I have seen and evaluated this patient at bedside. Patient with moderate dementia, denies pain. As per patient's daughter at bedside, there has been improvement in her mental status, patient is more awake, less lethargic, and stronger. - Exam Vitals: Temp Pulse Resp BP Pulse Ox 98.4 F 75 20 117/71 96 09/14/18 12:29 09/14/18 12:29 09/14/18 12:29 09/14/18 12:29 09/14/18 12:29 Exam: Vitals: Reviewed. General: Frail looking, Awake, Oriented to person, not time or place. No distress. Skin: Normal color, no rash, no lesions. HEENT: EOM, pupils equal, round and reactive. Cardiovascular: RRR, Normal S1 & S2, no rubs, murmurs or gallops. Lungs: Clear to auscultation bilaterally, no wheezes or crackles. Abdomen: Soft, non-tender, no rigidity. Distended in the supra-pubic area. Extremities: No deformity, no edema or tenderness, no joint swelling or clubbing. Neurological: Moderate dementia. Rest of the physical exam is non contributory - Assessment and Plan (1) UTI (urinary tract infection) Current Visit: Yes Status: Acute Assessment and Plan: We will continue ceftriaxone 1 g IV daily. Pending urine culture Blood cultures: No growth, pending final report. (2) HTN (hypertension) Current Visit: No Status: Chronic Assessment and Plan: Blood pressure has been well controlled. Continue metoprolol 12.5 mg by mouth twice a day. (3) Chronic kidney disease, stage III (moderate) Current Visit: No Status: Chronic Assessment and Plan: Worsening kidney function presentation most likely secondary to urinary retention. Kidney function is back to baseline. Avoid nephrotoxic medication. Bladder ultrasound. (4) CMML (chronic myelomonocytic leukemia) Current Visit: No Status: Chronic Assessment and Plan: Patient has a history of CML Leukocytosis could be multifactorial. CMML versus UTI. Patient on prednisone 10 mg by mouth daily. Outpatient Hem&Onc follow up (5) Confusion Current Visit: No Status: Resolved Assessment and Plan: As per patient's daughter she is back to her baseline. (6) Weakness Current Visit: Yes Status: Chronic (7) Chronic steroid use Current Visit: Yes Status: Acute Assessment and Plan: We will continue prednisone 10mg/PO daily DVT Prophylaxis: On heparin subcutaneous. - Summary of Assessment and Plan Summary of Assessment and Plan: We will keep patient in the hospital for 24 more hours on IV antibiotics, pending urine culture results. - Time Spent with Patient Total time spent is greater than 50% in coordination of care (as documented) at patient's floor/unit and/or counseling patient: Greater than 35 minutes (45) Plan of Care Discussed with: patient (the nurse and patient's daughter.) Internal Medicine: Result - Labs CBC & Chem 7: 09/14/18 05:30 09/14/18 05:30 Labs: Short CBC 09/14/18 Range/Units 05:30 WBC 40.2 H* (4.3-11.1) K/mcL Hgb 10.6 L (11.5-15.4) g/dL Hct 33.2 L (35.3-44.9) % Plt Count 100 L (140-400) K/mcL Neutrophils # 30.6 H (1.6-8.9) K/mcL BMP 09/14/18 05:30 Sodium 133 L Potassium 3.7 Chloride 101 Carbon Dioxide 22 L BUN 21 Creatinine 1.20 Glucose 110 H Calcium 9.6 Consult Discharge Plan - Plan Referrals: Jose Manriquez Jr, MD [Primary Care Provider] - (1) UTI (urinary tract infection) Qualifiers: Urinary tract infection type: acute cystitis Hematuria presence: with hematuria Qualified Code(s): N30.01 - Acute cystitis with hematuria (2) HTN (hypertension) Qualifiers: Hypertension type: essential hypertension Qualified Code(s): I10 - Essential (primary) hypertension (4) CMML (chronic myelomonocytic leukemia) Qualifiers: Leukemia Active/Remission status: in remission Qualified Code(s): C93.11 - C hronic myelomonocytic leukemia, in remission
--- NOTE | 2018-09-14 14:11 | Urology - Consult Note ---
Addendum entered and electronically signed by Aaron Bautista MD 09/14/18 15:43: Patient was seen and examined any. I agree with Ciera Weiner plan. We will continue with catheter at this time. We will continue to follow along. Original Note: Date of Encounter: 09/14/18 Time of Encounter: 13:45 - Assessment and Plan (1) Urinary retention Current Visit: Yes Status: Acute Assessment and plan: Patient is an 88 year old female who presents with acute urinary retention, likely secondary to urinary tract infection. Plan to continue indwelling escobedo. Discussed outpatient voiding trial with patient in 1-2 weeks. Considered Flomax, but patient will not be a good candidate due to lightheadedness and confusion. (2) UTI (urinary tract infection) Current Visit: Yes Status: Acute Assessment and plan: Patient is an 88 year old female with a history of recurrent urinary tract infection. Reviewed past cultures for Staphyloccocus epidermidis and E. Coli. Patient placed on IV Rocephin, and vital signs are stable and afebrile. Will await urine and final blood cultures. Qualifiers: Urinary tract infection type: acute cystitis Hematuria presence: with hematuria Qualified Code(s): N30.01 - Acute cystitis with hematuria Urology CN:HPI Consult date: 09/14/18 Reason for consult Urology: Other (acute urinary retention) History of present illness: Patient is an 88 year old female who presents with a history of a urinary tract infection, urinary retention and a significant past medical history of CML and dementia. Patient is a poor historian and is unable to verbalize relevant history. Patient reports no discomfort with indwelling escobedo. Patient denies fever, chills, dyspnea, flank pain, gross hematuria. Patient denies any known prior history of urinary retention. Patient is unsure of family history pertaining to pathology. Past Med Surg Social Fam HX - Past Medical History Medical history: cancer, dementia, hyperlipidemia, hypertension, other Additional medical history: leukemia. gout Psychiatric history: no psych history - Past Surgical History Surgical History: orthopedic, other Additional surgical history: right mastectomy - Social History Smoking Status: Never smoker Smokeless Tobacco Status: No Alcohol use: none Drug use: none - Family History Sister Living Status: Age at : 65 Cause of : Colon Cancer. Hx Family Cancer: Yes (colon) Father Adopted: No Living Status: Hx Family Neurologic Disorders: Yes (aneryism) Medications and Allergies Albuterol Sulfate [Proair Respiclick] 2 puff IH Q4H PRN 09/05/15 [History] Atorvastatin [Lipitor] 40 mg PO HS 09/05/15 [History] Budesonide/Formoterol 160/4.5 [Symbicort 160/4.5] 2 puff IH BIDR 03/11/18 [History] Ferrous Sulfate [Iron] 325 mg PO DAILY 03/11/18 [History] Gabapentin [Neurontin] 100 mg PO BID 03/11/18 [History] Potassium Chloride 40 meq PO DAILY 03/11/18 [History] amLODIPine [Norvasc] 5 mg PO BID 03/11/18 [History] Docusate Sodium [Dok] 100 mg PO DAILY 09/13/18 [History] predniSONE [PredniSONE] 10 mg PO DAILY 09/13/18 [History] Allergy/AdvReac Type Severity Reaction Status Date / Time Penicillins Allergy Hives Verified 03/11/18 20:00 Review of Systems All systems PM: reviewed and no additional remarkable complaints except as stated Exam Initial Vital Signs Temp Pulse Resp BP Pulse Ox 99.2 F 102 15 111/67 95 09/12/18 14:03 09/12/18 14:03 09/12/18 14:03 09/12/18 14:03 09/12/18 14:03 - General physical appearance Present: well developed, no distress, no pain - Eyes Present: PERRL, normal ocular movement - ENT Present: normal nares, no hearing loss, no congestion - Neck Present: no masses, trachea midline - Respiratory Present: normal respiratory effort - Cardiovascular Cardiovascular exam IM: RRR - Abdomen Abdomen: Present: soft, non tender - Genitourinary Present: other (Indwelling escobedo catheter draining clear urine into bedside bag) - Integumentary Present: no rash, no abnormal pigmentation - Neurologic Present: normal coordination Urology Results - Labs 09/14/18 05:30 09/14/18 05:30 Abnormal lab results WBC 40.2 K/mcL (4.3-11.1) H* 09/14/18 05:30 Hgb 10.6 g/dL (11.5-15.4) L 09/14/18 05:30 Hct 33.2 % (35.3-44.9) L 09/14/18 05:30 MCV 78.5 fL (83.0-100.0) L 09/14/18 05:30 MCH 25.1 pg (28.0-33.3) L 09/14/18 05:30 RDW 15.5 % (11.5-14.5) H 09/14/18 05:30 Plt Count 100 K/mcL (140-400) L 09/14/18 05:30 Neutrophils # 30.6 K/mcL (1.6-8.9) H 09/14/18 05:30 Monocytes # 7.6 K/mcL (0.0-1.3) H 09/14/18 05:30 Platelet Estimate Slight Decrease (Normal) L 09/14/18 05:30 Anisocytosis 1+ (Not Present) A 09/12/18 14:28 Sodium 133 mEq/L (136-145) L 09/14/18 05:30 Carbon Dioxide 22 mEq/L (23-29) L 09/14/18 05:30 Est GFR ( Amer) 51 (> 60) L 09/14/18 05:30 Est GFR (Non-Af Amer) 42 (> 60) L 09/14/18 05:30 Glucose 110 mg/dL (70-105) H 09/14/18 05:30 POC Glucose 302 mg/dL (70-99) H 09/12/18 14:19 Globulin 3.6 g/dL (2.4-3.5) H 09/12/18 14:28 Albumin/Globulin Ratio 1.0 (1.1-2.2) L 09/12/18 14:28 Urine Clarity Cloudy (Clear) A 09/12/18 15:57 Ur Specific [place] < 1.005 (1.010-1.025) L 09/12/18 15:57 Urine Blood Moderate (Negative) H 09/12/18 15:57 Ur Leukocyte Esterase Large (Negative) H 09/12/18 15:57 Urine Microscopic RBC 3-5 per hpf (0-3) H 09/12/18 15:57 Urine Microscopic WBC TNTC per hpf (0-3) H 09/12/18 15:57 Urine Bacteria Moderate per hpf (None-Few) H 09/12/18 15:57 Hyaline Casts Moderate per lpf (None-Few) H 09/12/18 15:57 Ur Culture Indicated? YES (NO) A 09/12/18 15:57 Diabetes panel 09/14/18 Range/Units 05:30 Sodium 133 L (136-145) mEq/L Potassium 3.7 (3.5-5.1) mEq/L Chloride 101 (98-107) mEq/L Carbon Dioxide 22 L (23-29) mEq/L BUN 21 (8-23) mg/dL Creatinine 1.20 (0.60-1.20) mg/dL Glucose 110 H (70-105) mg/dL Calcium 9.6 (8.6-10.3) mg/dL Calcium panel 09/14/18 Range/Units 05:30 Calcium 9.6 (8.6-10.3) mg/dL Pituitary panel 09/14/18 Range/Units 05:30 Sodium 133 L (136-145) mEq/L Potassium 3.7 (3.5-5.1) mEq/L Chloride 101 (98-107) mEq/L Carbon Dioxide 22 L (23-29) mEq/L BUN 21 (8-23) mg/dL Creatinine 1.20 (0.60-1.20) mg/dL Glucose 110 H (70-105) mg/dL Calcium 9.6 (8.6-10.3) mg/dL Adrenal panel 09/14/18 Range/Units 05:30 Sodium 133 L (136-145) mEq/L Potassium 3.7 (3.5-5.1) mEq/L Chloride 101 (98-107) mEq/L Carbon Dioxide 22 L (23-29) mEq/L BUN 21 (8-23) mg/dL Creatinine 1.20 (0.60-1.20) mg/dL Glucose 110 H (70-105) mg/dL Calcium 9.6 (8.6-10.3) mg/dL All other labs normal. Consult Discharge Plan - Plan Referrals: Jose Manriquez Jr, MD [Primary Care Provider] -
[2018-09-15] MEDS: *HR* Heparin 5,000 UNIT/ML VIAL SQ SCH (05:19)
[2018-09-15 05:45] LABS: Mean Corpuscular HGB Conc 32.4 g/dL (31.6-35.5)
[2018-09-15 05:46] LABS: Hematocrit 33.3 % (35.3-44.9); Hemoglobin 10.8 g/dL (11.5-15.4); Mean Corpuscular Hemoglobin 25.4 pg (28.0-33.3); Mean Corpuscular Volume 78.4 fL (83.0-100.0); Mean Platelet Volume 11.7 fL (9.4-12.4); Platelet Count 101 K/mcL (140-400); Red Blood Count 4.25 M/mcL (3.82-4.97); Red Cell Distribution Width 15.6 % (11.5-14.5)
[2018-09-15 06:03] LABS: Calcium 9.5 mg/dL (8.6-10.3); Magnesium 2.1 mg/dL (1.6-2.6); Phosphorous 2.9 mg/dL (2.7-4.5); Potassium 3.8 mEq/L (3.5-5.1)
[2018-09-15 06:18] LABS: Lymphocytes # 1.5 K/mcL (0.6-4.6); Monocytes # 6.9 K/mcL (0.0-1.3); Platelet Estimate Slight Decrease (Normal)
[2018-09-15 07:45] VITALS: BP 114/63
[2018-09-15] MEDS: Budesonide/Formoterol 160/4.5 1 PUFF INH IH SCH (07:59)
--- NOTE | 2018-09-15 09:31 | Discharge Summary ---
- NOTES TO OUTPATIENT PROVIDER Notes to Outpatient Provider: Follow-up with urology within 1-2 weeks of hospital discharge. Orders not resulted at time of discharge: Pending orders 09/12/18 15:57 Culture,Urine [RM] Stat 09/14/18 08:09 Culture,Blood [BC] Stat Date of Encounter: 09/15/18 Time of Encounter: 09:25 - Discharge Diagnosis (1) UTI (urinary tract infection) Priority: Primary Status: Acute Qualifiers: Urinary tract infection type: acute cystitis Hematuria presence: with hematuria Qualified Code(s): N30.01 - Acute cystitis with hematuria (2) HTN (hypertension) Priority: Secondary Status: Chronic Qualifiers: Hypertension type: essential hypertension Qualified Code(s): I10 - Essential (primary) hypertension (3) Chronic kidney disease, stage III (moderate) Priority: Secondary Status: Chronic (4) CMML (chronic myelomonocytic leukemia) Priority: Secondary Status: Chronic Qualifiers: Leukemia Active/Remission status: in remission Qualified Code(s): C93.11 - Chronic myelomonocytic leukemia, in remission (5) Confusion Priority: Secondary Status: Resolved (6) Weakness Priority: Secondary Status: Chronic (7) Chronic steroid use Priority: Secondary Status: Acute Hospital course: Ms. Ware is a 88 year old female PMHx significant for Chronic Myeloid Leukemia, Dementia, HTN, HLD who presents to the ED due to lower extremity weakness over the past 48 hours. Per patient's daughter, pt has not been able to get up and walk as she normally does for the past 2 days. Patient admitted to the hospital due to UTI, treated with IV antibiotics, blood culture: no growth, Urine culture grew: staph epidermidis. Patient developed urinary retention, for which urology was consulted. who placed a escobedo catheter and recommended to keep Escobedo cath and have a voiding trial in 2-3 weeks. Patient acute symptoms have resolved, and patient is hemodynamically stable to be discharged/transferred to SNF/ECF. Being discharged on Oral antibiotics (adjusted based on urine culture sensitivity) to complete 8 days to treatment. - Time Spent with Patient Total time spent providing and/or coordinating discharge services: Greater than 30 minutes (45) - Discharge Medications Prescriptions: Nitrofurantoin (BID) [Macrobid] 100 mg PO BID 6 Days #12 capsule Home Medications: Albuterol Sulfate [Proair Respiclick] 2 puff IH Q4H PRN 09/05/15 [History] Atorvastatin [Lipitor] 40 mg PO HS 09/05/15 [History] Budesonide/Formoterol 160/4.5 [Symbicort 160/4.5] 2 puff IH BIDR 03/11/18 [History] Ferrous Sulfate [Iron] 325 mg PO DAILY 03/11/18 [History] Gabapentin [Neurontin] 100 mg PO BID 03/11/18 [History] Potassium Chloride 40 meq PO DAILY 03/11/18 [History] amLODIPine [Norvasc] 5 mg PO BID 03/11/18 [History] Docusate Sodium [Dok] 100 mg PO DAILY 09/13/18 [History] predniSONE [PredniSONE] 10 mg PO DAILY 09/13/18 [History] Nitrofurantoin (BID) [Macrobid] 100 mg PO BID 6 Days #12 capsule 09/15/18 [Rx] Allergies/Adverse Reactions: Allergy/AdvReac Type Severity Reaction Status Date / Time Penicillins Allergy Hives Verified 03/11/18 20:00 Date of admission: 09/12/18 18:36 Primary care physician: Jose Manriquez Jr, MD Consults: 09/12/18 20:22 Consult to Occupational Therapy [CONS] Routine Comment: Evaluate, develop and implement POC Reason for Consult: Weakness of Lower Extremities Does patient have active BEDREST order?: No Is patient medically & hemodynamically stable?: Yes Patient assessed for mobility or mobilized this visit?: No Consult to Physical Therapy [CONS] Routine Comment: Evaluate, develop and implement POC Reason for Consult: Weakness of B/L Lower Extremities Does patient have active BEDREST order?: No Is patient medically & hemodynamically stable?: Yes Patient assessed for mobility or mobilized this visit?: No 09/13/18 09:52 Consult to Development Vice President [CONS] Routine Reason for SW Consult: per physical therapy need rehab, family agrees 09/14/18 13:06 Consult to Urology [CONS] Routine Consulting Provider: Urology Jocelyn Reason for Consult: urinary retention. Call Completed: No - Constitutional Vitals: Temp Pulse Resp BP Pulse Ox 98.9 F 90 16 114/63 96 09/15/18 07:39 09/15/18 07:39 09/15/18 07:39 09/15/18 07:39 09/15/18 07:39 General appearance: Present: A&O X 2, pleasant, no acute distress, answers questions appropriately Exam: Vitals: Reviewed. General: Frail looking, Awake, Oriented to person, not time or place. No distress. Skin: Normal color, no rash, no lesions. Cardiovascular: RRR, Normal S1 & S2, no rubs, murmurs or gallops. Lungs: Clear to auscultation bilaterally, no wheezes or crackles. Abdomen: Soft, non-tender, no rigidity. Distended in the supra-pubic area. Extremities: No edema. strength is 4/5 in the upper and lower extr. Neurological: Moderate dementia. Rest of the physical exam is non contributory - Patient Status Disposition: Transfer SNF Condition: Good Overall status at discharge: patient is progressing back to baseline - Discharge Instructions Follow Up With: Jose Manriquez Jr, MD [Primary Care Provider] - - Diet and Activity Activity: as per physical therapy Diet: advance to your usual diet, low salt diet
--- NOTE | 2018-09-15 09:36 | Urology Progress Note ---
<Ciera Sutton N - Last Filed: 09/15/18 09:34> Date of Encounter: 09/15/18 Time of Encounter: 09:20 - Assessment and Plan (1) Urinary retention Status: Acute Assessment and plan: Patient is an 88 year old female with a history of urinary retention. Will plan voiding trial as an outpatient in the urology clinic within 7 days of discharge. (2) UTI (urinary tract infection) Status: Acute Assessment and plan: Patient is an 88 year old female with a history of recurrent UTI. Urine culture positive for gram positive cocci. Patient's vital signs are stable and afebrile. Patient has been placed on IV Rocephin. Recommend additional 7-10 days oral antibiotics after discharge. Progress Note Subjective: no new complaints Narrative: Patient seen and examined lying in bed in no apparent distress. Patient unable to actively participate in history or examination. Patient was asked if catheter was bothersome, and she responded by nodding her head "no." Sánchez is indwelling and draining clear urine into bedside bag. Objective Initial Vital Signs Temp Pulse Resp BP Pulse Ox 99.2 F 102 15 111/67 95 09/12/18 14:03 09/12/18 14:03 09/12/18 14:03 09/12/18 14:03 09/12/18 14:03 - General physical appearance Present: well developed, no distress, no pain - Respiratory Present: normal expansion, normal respiratory effort - Abdomen Present: soft, non tender - Genitourinary Urine Appearance: Present: Clear - Integumentary Present: no rash, no growths - Musculoskeletal Present: normal posture - Psychiatric Absent: oriented to time, oriented to person, oriented to place, speech is normal, memory intact - Labs 09/15/18 05:24 09/15/18 05:24 Diabetes panel 09/15/18 Range/Units 05:24 Sodium 134 L (136-145) mEq/L Potassium 3.8 (3.5-5.1) mEq/L Chloride 102 (98-107) mEq/L Carbon Dioxide 24 (23-29) mEq/L BUN 23 (8-23) mg/dL Creatinine 1.13 (0.60-1.20) mg/dL Glucose 114 H (70-105) mg/dL Calcium 9.5 (8.6-10.3) mg/dL Calcium panel 09/15/18 Range/Units 05:24 Calcium 9.5 (8.6-10.3) mg/dL Phosphorus 2.9 (2.7-4.5) mg/dL Pituitary panel 09/15/18 Range/Units 05:24 Sodium 134 L (136-145) mEq/L Potassium 3.8 (3.5-5.1) mEq/L Chloride 102 (98-107) mEq/L Carbon Dioxide 24 (23-29) mEq/L BUN 23 (8-23) mg/dL Creatinine 1.13 (0.60-1.20) mg/dL Glucose 114 H (70-105) mg/dL Calcium 9.5 (8.6-10.3) mg/dL Adrenal panel 09/15/18 Range/Units 05:24 Sodium 134 L (136-145) mEq/L Potassium 3.8 (3.5-5.1) mEq/L Chloride 102 (98-107) mEq/L Carbon Dioxide 24 (23-29) mEq/L BUN 23 (8-23) mg/dL Creatinine 1.13 (0.60-1.20) mg/dL Glucose 114 H (70-105) mg/dL Calcium 9.5 (8.6-10.3) mg/dL Consult Discharge Plan - Plan Instructions: Nitrofurantoin Combination (By mouth), Urinary Tract Infection in Women (DC) Referrals: Aaron Bautista MD [Partnered Physician] - 09/21/18 7:30 am (Please follow up as schedule....) Jose Manriquez Jr, MD [Primary Care Provider] - (patient is going to [facility]) Prescriptions: RX: Nitrofurantoin (BID) [Macrobid] 100 mg PO BID 6 Days #12 capsule <Aaron Bautista - Last Filed: 09/15/18 11:38> Date of Encounter: 09/15/18 - Assessment and Plan (1) Urinary tract infection Status: Acute Assessment and plan: patient was seen and examined independently. I agree with the plan as written by Ciera Sutton. keep cath in place. will consider voiding trial next week. Qualifiers: Urinary tract infection type: site unspecified Hematuria presence: without hematuria Qualified Code(s): N39.0 - Urinary tract infection, site not specified Objective Initial Vital Signs Temp Pulse Resp BP Pulse Ox 99.2 F 102 15 111/67 95 09/12/18 14:03 09/12/18 14:03 09/12/18 14:03 09/12/18 14:03 09/12/18 14:03 - Labs 09/15/18 05:24 09/15/18 05:24 Diabetes panel 09/15/18 Range/Units 05:24 Sodium 134 L (136-145) mEq/L Potassium 3.8 (3.5-5.1) mEq/L Chloride 102 (98-107) mEq/L Carbon Dioxide 24 (23-29) mEq/L BUN 23 (8-23) mg/dL Creatinine 1.13 (0.60-1.20) mg/dL Glucose 114 H (70-105) mg/dL Calcium 9.5 (8.6-10.3) mg/dL Calcium panel 09/15/18 Range/Units 05:24 Calcium 9.5 (8.6-10.3) mg/dL Phosphorus 2.9 (2.7-4.5) mg/dL Pituitary panel 09/15/18 Range/Units 05:24 Sodium 134 L (136-145) mEq/L Potassium 3.8 (3.5-5.1) mEq/L Chloride 102 (98-107) mEq/L Carbon Dioxide 24 (23-29) mEq/L BUN 23 (8-23) mg/dL Creatinine 1.13 (0.60-1.20) mg/dL Glucose 114 H (70-105) mg/dL Calcium 9.5 (8.6-10.3) mg/dL Adrenal panel 09/15/18 Range/Units 05:24 Sodium 134 L (136-145) mEq/L Potassium 3.8 (3.5-5.1) mEq/L Chloride 102 (98-107) mEq/L Carbon Dioxide 24 (23-29) mEq/L BUN 23 (8-23) mg/dL Creatinine 1.13 (0.60-1.20) mg/dL Glucose 114 H (70-105) mg/dL Calcium 9.5 (8.6-10.3) mg/dL
[2018-09-15] MEDS: Gabapentin 100 MG CAPSULE PO SCH (09:49)
[2018-09-15] MEDS: cefTRIAXone 1,000 MG in Water for inj. (sterile) 20 ML 10 ML IVP SCH (09:49)
[2018-09-15] MEDS: predniSONE 10 MG TABLET PO SCH (09:49)
--- NOTE | 2018-09-15 10:33 | Physician Discharge Referral ---
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 (5) Confusion Priority: Secondary Status: Resolved (6) Weakness Priority: Secondary Status: Chronic (7) Chronic steroid use Priority: Secondary Status: Acute Prognosis: Fair Aware of Diagnosis: Patient Aware of Prognosis: Patient - Transfer Medications Prescriptions: Nitrofurantoin (BID) [Macrobid] 100 mg PO BID 6 Days #12 capsule Home Medications: Albuterol Sulfate [Proair Respiclick] 2 puff IH Q4H PRN 09/05/15 [History] Atorvastatin [Lipitor] 40 mg PO HS 09/05/15 [History] Budesonide/Formoterol 160/4.5 [Symbicort 160/4.5] 2 puff IH BIDR 03/11/18 [H istory] Ferrous Sulfate [Iron] 325 mg PO DAILY 03/11/18 [History] Gabapentin [Neurontin] 100 mg PO BID 03/11/18 [History] Potassium Chloride 40 meq PO DAILY 03/11/18 [History] amLODIPine [Norvasc] 5 mg PO BID 03/11/18 [History] Docusate Sodium [Dok] 100 mg PO DAILY 09/13/18 [History] predniSONE [PredniSONE] 10 mg PO DAILY 09/13/18 [History] Nitrofurantoin (BID) [Macrobid] 100 mg PO BID 6 Days #12 capsule 09/15/18 [Rx] Allergies/Adverse Reactions: Allergy/AdvReac Type Severity Reaction Status Date / Time Penicillins Allergy Hives Verified 03/11/18 20:00 - Respiratory Orders None Smoking Cessation: Smoking cessation has been advised. For more information, call the [place] Tobacco Quit Line at 9-483-IHVE-NOW. - Advance Directives Code Status: Full Code - Mobility Orders Chair - Rehabiliation Orders Rehab Potential: Fair Rehab Orders: Evaluation for Physical Therapy, Evaluation for Occupational Therapy - Diet Orders Regular CERTIFICATION: I certify that the transfer of the above named patient to an Extended Care Facility is necessary for the continuing treatment of the diagnosis listed. The above information is true and accurate reflection of patient's current condition. Confidential - Redisclosure prohibited without a patient's written consent.
== END 2018-09-15 11:13 ==
LOC: 2ANU 13:54 → EMEROOARM 13:54 → SUATTDRO 18:36 → 2ANU 20:10
PROVIDERS: ADMIT Hospitalist; ATTEND Internal Medicine